=== PATIENT | female | born 1980 | race American Indian/Alaskan Native ===

== ENCOUNTER 2017-05-03 11:03 | Emergency (ER) | payer OTHER ==
[2017-05-03 12:18] VITALS: BP 145/81
--- NOTE | 2017-05-03 13:19 | Emergency Department Report ---
Minor Respiratory - HPI Chief Complaint: Upper Respiratory Infection Stated Complaint: FLU LIKE SYMPTOMS Time Seen by Provider: 05/03/17 12:44 Duration: 2 weeks Pain Location: Chest (from coughing) Severity: moderate Minor Respiratory: Yes Rhinorrhea, Yes Sore Throat, Yes Able to Tolerate Fluids , Yes Cough, Yes Sick Contacts, Yes Fever, No Ear Pain, No Hemoptysis, No Chest Pain, No Shortness of Breath Other History: This is a 36 y.o female with fever, productive cough, congestion , and runny nose for 2 weeks. She reports taking theraflu, sudafed, and mucinex with minimal relief. She was trying to work on symptoms herself at home but she just can't get reflief. Denies chest pain, SOB, and weakness. ED Review of Systems ROS: Stated complaint: FLU LIKE SYMPTOMS Other details as noted in HPI Constitutional: fever. denies: chills, diaphoresis, weakness ENT: throat pain, congestion. denies: ear pain, dental pain, hearing loss, epistaxis Respiratory: see HPI, cough. denies: orthopnea, shortness of breath, SOB with exertion, SOB at rest, stridor, wheezing Cardiovascular: as per HPI. denies: chest pain, palpitations, dyspnea on exertion, orthopnea, edema, syncope, paroxysmal nocturnal dyspnea Gastrointestinal: denies: abdominal pain, nausea, diarrhea Musculoskeletal: myalgia. denies: back pain, joint swelling, arthralgia Neurological: as per HPI, headache. denies: weakness, numbness, paresthesias, confusion, abnormal gait, vertigo ED Past Medical Hx - Past Medical History Previous Medical History?: Yes Hx Hypertension: No Hx CVA: No Hx Heart Attack/AMI: No Hx Congestive Heart Failure: No Hx Diabetes: No Hx Deep Vein Thrombosis: No Hx Pulmonary Embolism: No Hx GERD: No Hx Liver Disease: No Hx Renal Disease: No Hx of Cancer: No Hx Sickle Cell Disease: No Hx Arthritis: No Hx Headaches / Migraines: No Hx Seizures: No Hx Kidney Stones: No Hx Psychiatric Treatment: No Hx Asthma: No Hx COPD: No Hx Tuberculosis: No Hx Dementia: No Hx HIV: No - Surgical History Past Surgical History?: No Hx Coronary Stent: No Hx Open Heart Surgery: No Hx Pacemaker: No Hx Internal Defibrillator: No Hx Cholecystectomy: No Hx Appendectomy: No Hx Breast Surgery: No - Social History Smoking Status: Current Every Day Smoker Substance Use Type: Alcohol, Marijuana - Medications Home Medications: Home Medications Medication Instructions Recorded Confirmed Last Taken Type Azithromycin [Zithromax Z-ELOY] 250 mg PO DAILY 5 Days #6 tablet 05/03/17 Unknown Rx Benzonatate 200 mg PO TID PRN #30 capsule 05/03/17 Unknown Rx Fluticasone [Flonase] 1 spray NS QDAY #1 bottle 05/03/17 Unknown Rx Minor Respiratory Exam - Exam General: Vital signs noted. No distress. Alert and acting appropriately. HEENT: Yes Pharyngeal Erythema, Yes Moist Mucous Membranes, Yes Rhinorrhea, No Pharyngeal Exudates, No Conjuctival Injection, No Frontal Tenderness, No Maxillary Tenderness Ear: Neither TM Bulge, Neither TM Erythema, Neither EAC Pain, Neither EAC Discharge Neck: Yes Supple, No Adenopathy Lungs: Yes Good Air Exchange, Yes Ronchi, Yes Cough, No Wheezes, No Stridor, No Labored Respirations, No Retractions, No Use of Accessory Muscles, No Other Abnormal Lung Sounds Heart: Yes Regular, No Murmur Abdomen: Yes Normal Bowel Sounds, No Tenderness, No Peritoneal Signs Skin: No Rash, No Edema Neurologic: Alert and oriented, no deficits. Musculoskeletal: Unremarkable. ED Course Vital Signs 05/03/17 12:09 Temperature 99.8 F H Pulse Rate 100 H Respiratory 20 Rate Blood Pressure 145/81 Blood Pressure 145/81 [Right] O2 Sat by Pulse 97 Oximetry ED Medical Decision Making - Radiology Data Radiology results: image reviewed CXR Findings: Normal cardiomediastinal silhouette. Trachea is midline. No consolidation, pneumothorax or pleural effusion. Impression: No acute cardiopulmonary findings. - Medical Decision Making 36 y.o. female presents with flu-like symptoms x 2 weeks. 2 weeks of taking OTC cold and flu medication w/o improvement. Rapid influenza negative Impression: No acute cardiopulmonary findings. Non-productive cough worse at night. Start Zpak for pertussis value, benzonate for cough. Informed of cough possibly lasting 2-4 weeks. If not improved in 4 weeks f/u with [facility]. Encouraged to f/u with [facility] if symptoms are not improved in 1 week. Critical care attestation.: If time is entered above; I have spent that time in minutes in the direct care of this critically ill patient, excluding procedure time. ED Disposition Clinical Impression: Bronchitis URI (upper respiratory infection) Qualifiers: URI type: acute nasopharyngitis (common cold) Qualified Code(s): J00 - Acute nasopharyngitis [common cold] Disposition: TO HOME OR SELFCARE Is pt being admited?: No Does the pt Need Aspirin: No Condition: Stable Instructions: Chronic Bronchitis (ED) Additional Instructions: Wash hands frequently. The cough can last for 2-4 weeks. Use tylenol and ibuprofen should be taken with regular fluid intake. Follow up with primary care provider on referral. Seek medical attention if fever, headache, wheezing, or chest symptoms worsen. If drowsy or confused in the short term or if cough last longer than 4 weeks. Prescriptions: Azithromycin [Zithromax Z-ELOY] 250 mg PO DAILY 5 Days #6 tablet Benzonatate 200 mg PO TID PRN #30 capsule PRN Reason: Cough Fluticasone [Flonase] 1 spray NS QDAY #1 bottle Referrals: PRIMARY CARE, [Primary Care Provider] - 3-5 Days [facility] [Outside] - 3-5 Days [facility] [Outside] - 3-5 Days [facility] [Outside] - 3-5 Days Forms: Work/School Release Form(ED) Time of Disposition: 14:20 Print Language: SERBIAN
--- NOTE | 2017-05-03 13:37 | XRay Report ---
Chest 2 views: History: Cough. Findings: Normal cardiomediastinal silhouette. Trachea is midline. No consolidation, pneumothorax or pleural effusion. Impression: No acute cardiopulmonary findings.
== END 2017-05-03 14:33 | disposition home or self-care (01) ==
LOC: ED 11:03
DX: J40 Bronchitis, not specified as acute or chronic (principal); J00 Acute nasopharyngitis [common cold]; F17.200 Nicotine dependence, unspecified, uncomplicated; F12.10 Cannabis abuse, uncomplicated
CPT/HCPCS: 71046; 87400; 99283

== ENCOUNTER 2018-09-14 15:39 | Inpatient (IN) | payer OTHER, SELFPAY ==
--- NOTE | 2018-09-14 16:26 | Emergency Department Report ---
Blank Doc - Documentation Documentation: 38 y o female presents to Ed cc of sob and palpatations x 2 days after taking m agnesium citrate. labs [facility] eval
[2018-09-14 17:23] LABS: Basophils % (Auto) 0.2 % (0.0-1.8); Eosinophils # (Auto) 0.1 K/mm3 (0.0-0.4); Eosinophils % (Auto) 0.6 % (0.0-4.3); Hemoglobin 10.6 gm/dl (10.1-14.3); Lymphocytes % (Auto) 5.6 % (13.4-35.0); Mean Corpuscular HGB Conc 32 % (30-34); Mean Corpuscular Volume 86 fl (79-97); Monocytes # (Auto) 1.7 K/mm3 (0.0-0.8); Monocytes % (Auto) 9.2 % (0.0-7.3); Platelet Count 307 K/mm3 (140-440); Red Blood Count 3.84 M/mm3 (3.65-5.03); Red Cell Distribution Width 13.3 % (13.2-15.2)
[2018-09-14 18:03] LABS: BUN/Creatinine Ratio 10; Blood Urea Nitrogen 10 mg/dL (7-17); Calcium 8.9 mg/dL (8.4-10.2); Hemolysis Index 12
[2018-09-14] MEDS ORDERED: NACL 0.9% 1000 ML 1,000 ML IV ONE (18:56)
--- NOTE | 2018-09-14 19:05 | Emergency Department Report ---
ED General Adult HPI - General Chief complaint: Arrhythmia/Palpitations Stated complaint: SOB/CONSTIPATION Time Seen by Provider: 09/14/18 16:21 Source: patient Mode of arrival: Ambulatory Limitations: No Limitations - History of Present Illness Initial comments: This is a 38-year-old -[place] female who presents to the emergency room with palpitations and constipation for 5 days. She states she took two magnesium citrate and shortly after symptoms started last night. Patient reports clear liquid came out only. She also complains of shortness of breath, diffuse abdominal cramping, and urinary frequency. She denies dysuria, fever, and diarrhea. -: Last night Location: chest, abdomen Radiation: non-radiation Severity scale (0 -10): 0 Quality: other (cramping) Consistency: intermittent Improves with: none Worsens with: none Associated Symptoms: shortness of breath, other (palpitations). denies: confusion, chest pain, cough, diaphoresis, fever/chills, headaches, loss of appetite, malaise, nausea/vomiting, rash, seizure, syncope, weakness Treatments Prior to Arrival: none - Related Data Previous Rx's Medication Instructions Recorded Last Taken Type Azithromycin [Zithromax Z-ELOY] 250 mg PO DAILY 5 Days #6 tablet 05/03/17 Unknown Rx Benzonatate 200 mg PO TID PRN #30 capsule 05/03/17 Unknown Rx Fluticasone [Flonase] 1 spray NS QDAY #1 bottle 05/03/17 Unknown Rx Allergies Allergy/AdvReac Type Severity Reaction Status Date / Time No Known Allergies Allergy Verified 09/14/18 16:23 ED Review of Systems ROS: Stated complaint: SOB/CONSTIPATION Other details as noted in HPI Constitutional: denies: chills, fever Respiratory: denies: cough, shortness of breath, wheezing Cardiovascular: palpitations. denies: chest pain, edema, syncope Gastrointestinal: abdominal pain, constipation. denies: nausea, diarrhea Genitourinary: denies: urgency, dysuria, discharge Skin: denies: rash, lesions Neurological: denies: headache, weakness, paresthesias Psychiatric: denies: anxiety, depression ED Past Medical Hx - Past Medical History Previous Medical History?: No Hx Hypertension: No Hx CVA: No Hx Heart Attack/AMI: No Hx Congestive Heart Failure: No Hx Diabetes: No Hx Deep Vein Thrombosis: No Hx Pulmonary Embolism: No Hx GERD: No Hx Liver Disease: No Hx Renal Disease: No Hx Sickle Cell Disease: No Hx Arthritis: No Hx Headaches / Migraines: No Hx Seizures: No Hx Kidney Stones: No Hx Psychiatric Treatment: No Hx Asthma: No Hx COPD: No Hx Tuberculosis: No Hx Dementia: No Hx HIV: No - Surgical History Past Surgical History?: No Hx Coronary Stent: No Hx Open Heart Surgery: No Hx Pacemaker: No Hx Internal Defibrillator: No Hx Cholecystectomy: No Hx Appendectomy: No Hx Breast Surgery: No - Social History Smoking Status: Current Some Day Smoker Substance Use Type: Alcohol - Medications Home Medications: Home Medications Medication Instructions Recorded Confirmed Last Taken Type Azithromycin [Zithromax Z-ELOY] 250 mg PO DAILY 5 Days #6 tablet 05/03/17 Unknown Rx Benzonatate 200 mg PO TID PRN #30 capsule 05/03/17 Unknown Rx Fluticasone [Flonase] 1 spray NS QDAY #1 bottle 05/03/17 Unknown Rx ED Physical Exam - General Limitations: No Limitations General appearance: alert, in no apparent distress - Respiratory Respiratory exam: Present: normal lung sounds bilaterally. Absent: respiratory distress - Cardiovascular Cardiovascular Exam: Present: regular rate, normal rhythm. Absent: systolic murmur, diastolic murmur, rubs, gallop - GI/Abdominal GI/Abdominal exam: Present: soft, tenderness (left upper quadrant and right lower quadrant), normal bowel sounds. Absent: distended, guarding, rebound, rigid, organomegaly, mass, bruit, pulsatile mass - Back Exam Back exam: Absent: CVA tenderness (R), CVA tenderness (L) - Neurological Exam Neurological exam: Present: alert, oriented X3 - Psychiatric Psychiatric exam: Present: normal affect, normal mood - Skin Skin exam: Present: warm, dry, intact, normal color. Absent: rash ED Course Vital Signs 09/14/18 09/15/18 16:21 04:25 Temperature 98.8 F Pulse Rate 116 H Respiratory 20 18 Rate Blood Pressure 133/73 [Right] O2 Sat by Pulse 100 98 Oximetry ED Medical Decision Making - Lab Data Result diagrams: 09/14/18 16:57 09/14/18 16:57 - EKG Data -: No EKG Interpreted by Me (EKG interpreted by attending) EKG shows normal: sinus rhythm Rate: normal - Radiology Data Radiology results: report reviewed PROCEDURE: CT ABDOMEN PELVIS W CON TECHNIQUE: Computerized axial tomography of the abdomen and pelvis was performed after the IV injection of iodinated nonionic contrast. CT DOSE LENGTH PRODUCT: mGycm HISTORY: LUQ RLQ tenderness COMPARISONS: None . FINDINGS: Liver, spleen, pancreas and adrenal glands are within normal limits. Bilateral kidneys demonstrate uniform enhancement without hydronephrosis. Aorta is of normal caliber. There is no free fluid or free air. Gallbladder is unremarkable. There are multiple moderately distended loops of small bowel with air fluid Levels. A Definite site of transition is not identified. Appendix is normal. The multiloculated fluid collection measuring 6.4 x 5.0 cm is noted to the left of the uterus displacing the uterus to the right. An IUD is identified in the uterus. Vertebral height is normal. IMPRESSION: A multiloculated fluid collection in the pelvis on the left may represent etiologies such as tubo-ovarian abscess and left ovarian cyst. Ultrasound evaluation is recommended. Air-fluid levels in moderately distended small bowel loops most likely represent ileus. EXAM: US TRANSVAGINAL, US PELVIC COMPLETE HISTORY: r/o ovarian cyst or abscess TECHNIQUE: Transabdominal and transvaginal sonogram of the pelvis was performed. COMPARISON: CT pelvis from 09/14/2018 FINDINGS: Uterus is unremarkable and measures 9.2 x 4.3 x 7.0 cm. The endometrial stripe thickness is 1.1 cm within normal limits. The IUD is malpositioned and located at the cervix. 1.9 cm simple cyst in the right ovary is within physiologic range. Doppler flow demonstrated to the right ovary. The ovary measures 3.4 x 2.0 x 3.4 cm. There is a complex cystic lesion in the left adnexa with internal echoes and peripheral vascularity. The etiology is indeterminate. Possible tubo-ovarian abscess, nonspecific complex cysts, other. Clinical correlation and follow-up recommended. A normal left ovary is not visualized. No free fluid. IMPRESSION: Complex left adnexal cystic lesion is of indeterminate etiology. Possible tubo- ovarian abscess, nonspecific complex cysts, other. Clinical correlation and follow-up recommended. The IUD is malpositioned in the cervix. - Medical Decision Making Patient was examined by me. Patient is in no acute distress. Tachycardic on arrival. Obtained a CBC, CMP, hCG, and CT of abdomen and pelvis. Leukocytosis. IV initiated. Given normal saline 1 L, Toradol, and Benadryl while in the ER. There was suspension of PID and patient given rocephin 1 gram IV prior to blood cultures. CT results of A multiloculated fluid collection in the pelvis on the left may represent etiologies such as tubo-ovarian abscess and left ovarian cyst. Ultrasound evaluation is recommended. Air-fluid levels in mode rately distended small bowel loops most likely represent ileus. Ordered Ultrasound of pelvic and transvaginal. Complex left adnexal cystic lesion is of indeterminate etiology. Possible tubo-ovarian abscess, nonspecific complex cysts, other. Clinical correlation and follow-up recommended. The IUD is malpositioned in the cervix. Consulted attending Dr. Barnes. Patient tachycardic with leukocytosis which meets suspected sepsis protocol. Consulted OPTOMET[employer] ASSISTANT Dr. Posey. Consulted hospitalist Dr. Peralta. Consulted Dr. Posey with [facility] who would like to have patient admitted through hospitalist and [facility] consulted for management of possible tubo-ovarian abscess. Spoke with Dr. Peralta who agreed to admit the patient for sepsis protocol. Ordered clindamycin 300 mg IV, gentamycin 120 mg IV and normal saline 1 L. Critical care attestation.: If time is entered above; I have spent that time in minutes in the direct care of this critically ill patient, excluding procedure time. ED Disposition Clinical Impression: Shortness of breath on exertion, Tubo-ovarian abscess Abdominal pain Qualifiers: Abdominal location: generalized Qualified Code(s): R10.84 - Generalized abdominal pain Sepsis Qualifiers: Sepsis type: sepsis due to unspecified organism Qualified Code(s): A41.9 - Sepsis, unspecified organism Disposition: OP ADMIT IP TO THIS HOSP Is pt being admited?: Yes Condition: Stable
[2018-09-14] MEDS ORDERED: BENADRYL IV ONE (22:46)
[2018-09-14] MEDS ORDERED: BENADRYL ONE (22:49)
--- NOTE | 2018-09-14 23:33 | Cat Scan Report ---
PROCEDURE: CT ABDOMEN PELVIS W CON TECHNIQUE: Computerized axial tomography of the abdomen and pelvis was performed after the IV inject ion of iodinated nonionic contrast. CT DOSE LENGTH PRODUCT: mGycm HISTORY: LUQ RLQ tenderness COMPARISONS: None . FINDINGS: Liver, spleen, pancreas and adrenal glands are within normal limits. Bilateral kidneys demonstrate un iform enhancement without hydronephrosis. Aorta is of normal caliber. There is no free fluid or free air. Gallbladder is unremarkable. There are multiple moderately distended loops of small bowel with a ir fluid Levels. A Definite site of transition is not identified. Appendix is normal. The multilocula fabrice fluid collection measuring 6.4 x 5.0 cm is noted to the left of the uterus displacing the uterus to the right. An IUD is identified in the uterus. Vertebral height is normal. IMPRESSION: A multiloculated fluid collection in the pelvis on the left may represent etiologies such as tubo-ovarian abscess and left ovarian cyst. Ultrasound evaluation is recommended. Air-fluid levels in moderately distended small bowel loops most likely represent ileus. This document is electronically signed by Robert Casper MD., Sep 14 2018 11:31:07 PM ET
[2018-09-14] MEDS ORDERED: ROCEPHIN/NS 1 GM/50 ML 1 GM/50 ML BAG IV ONE (23:37)
[2018-09-14] MEDS ORDERED: TORADOL IV ONE (23:40)
--- NOTE | 2018-09-15 01:29 | Ultrasound Report ---
EXAM: US TRANSVAGINAL, US PELVIC COMPLETE HISTORY: r/o ovarian cyst or abscess TECHNIQUE: Transabdominal and transvaginal sonogram of the pelvis was performed. COMPARISON: CT pelvis from 09/14/2018 FINDINGS: Uterus is unremarkable and measures 9.2 x 4.3 x 7.0 cm. The endometrial stripe thickness is 1.1 cm within normal limits. The IUD is malpositioned and located at the cervix. 1.9 cm simple cyst in the right ovary is within physiologic range. Doppler flow demonstrated to the r ight ovary. The ovary measures 3.4 x 2.0 x 3.4 cm. There is a complex cystic lesion in the left adnexa with internal echoes and peripheral vascularity. The etiology is indeterminate. Possible tubo-ovarian abscess, nonspecific complex cysts, other. Clini bola correlation and follow-up recommended. A normal left ovary is not visualized. No free fluid. IMPRESSION: Complex left adnexal cystic lesion is of indeterminate etiology. Possible tubo-ovarian abscess, nonsp ecific complex cysts, other. Clinical correlation and follow-up recommended. The IUD is malpositioned in the cervix. This document is electronically signed by Corona Delacruz MD., Sep 15 2018 01:27:40 AM ET
[2018-09-15] MEDS ORDERED: NACL 0.9% 1000 ML IV ONE (01:40)
[2018-09-15] MEDS ORDERED: GENTAMICIN/NS 120MG/100ML 120 MG/100 ML BAG IV ONE (01:49)
[2018-09-15] MEDS ORDERED: CLEOCIN 300 MG/50 mL 300 MG/50 ML BAG IV ONE (01:49)
[2018-09-15] MEDS ORDERED: SODIUM CHLORIDE FLUSH SYRINGE 10 ML IV PRN (02:49)
[2018-09-15] MEDS ORDERED: TYLENOL PO PRN (02:49)
--- NOTE | 2018-09-15 03:03 | History and Physical Report ---
History of Present Illness Date of examination: 09/15/18 Chief complaint: Shortness of breath History of present illness: Patient is a 38-year-old -[place] female with no known past medical history who presented to the ED on account of a day history of shortness of breath. Patient stated that she's been having constipation for the past 5 days which was not relieved by laxatives. Subsequently, she started experiencing palpitations and today she started having shortness of breath which prompted her to come to the ED for further evaluation. She has associated chills without fever, left lower quadrant abdominal pain radiating to the back, headaches, lightheadedness and generalized weakness. She denies chest pain, cough, sore throat, runny nose or congestion, leg swelling, orthopnea or PND. No nausea, vomiting, syncope or loss of consciousness. Past History Past Medical History: No medical history, other (Gynecology hx: Irregular me nstrual period for 3 months) Past Surgical History: Other (IUD placement for more than 10 years) Social history: smoking (patient has more than 30 years history of cigarette smoking. She currently smokes few sticks per day. She admits to occasional alcohol and marijuana use. She denies other illicit drug use) Family history: no significant family history (reviewed and noncontributory to current complaints) Medications and Allergies Allergies Allergy/AdvReac Type Severity Reaction Status Date / Time No Known Allergies Allergy Verified 09/14/18 16:23 Home Medications Medication Instructions Recorded Confirmed Last Taken Type Azithromycin [Zithromax Z-ELOY] 250 mg PO DAILY 5 Days #6 tablet 05/03/17 Unknown Rx Benzonatate 200 mg PO TID PRN #30 capsule 05/03/17 Unknown Rx Fluticasone [Flonase] 1 spray NS QDAY #1 bottle 05/03/17 Unknown Rx Active Meds: Active Medications Acetaminophen (Tylenol) 650 mg PO Q4H PRN PRN Reason: Pain MILD(1-3)/Fever >100.5/RIBEIRO Famotidine (Pepcid) 20 mg IV DAILY ARUNA Hydromorphone HCl (Dilaudid) 0.5 mg IV Q3H PRN PRN Reason: Pain , Severe (7-10) Potassium Chloride/Sodium Chloride (Ns/Kcl 20meq) 20 meq in 1,000 mls @ 100 mls/hr IV DIRECT ARUNA Ampicillin Sodium/Sulbactam Sodium (Unasyn/Ns 3 Gm/100 Ml) 3 gm in 100 mls @ 200 mls/hr IV Q6HR ARUNA; Protocol Doxycycline Hyclate 100 mg/ (Sodium Chloride) 250 mls @ 250 mls/hr IV Q12HR ARUNA; Protocol Ondansetron HCl (Zofran) 4 mg IV Q6H PRN PRN Reason: Nausea And Vomiting Oxycodone/Acetaminophen (Percocet 5/325) 1 tab PO Q4H PRN PRN Reason: Pain, Moderate (4-6) Sodium Chloride (Sodium Chloride Flush Syringe 10 Ml) 10 ml IV BID ARUNA Sodium Chloride (Sodium Chloride Flush Syringe 10 Ml) 10 ml IV PRN PRN PRN Reason: LINE FLUSH Zolpidem Tartrate (Ambien) 5 mg PO QHS PRN PRN Reason: Insomnia Review of Systems All systems: negative (except as documented in the HPI, 14 point systems reviewed were negative) Exam - Constitutional Vitals: Temp Pulse Resp BP Pulse Ox 98.8 F 116 H 20 133/73 100 09/14/18 16:21 09/14/18 16:21 09/14/18 16:21 09/14/18 16:21 09/14/18 16:21 General appearance: Present: no acute distress - EENT Eyes: Present: PERRL, EOM intact ENT: hearing intact, clear oral mucosa - Neck Neck: Present: supple, normal ROM - Respiratory Respiratory effort: normal Respiratory: bilateral: CTA - Cardiovascular Rhythm: regular (with tachycardia) Heart Sounds: Present: S1 & S2 - Extremities Extremities: pulses symmetrical, No edema - Abdominal General gastrointestinal: Present: soft, tender (LLQ), non-distended, normal bowel sounds - Rectal Rectal Exam: deferred - Integumentary Integumentary: Present: clear, warm, dry - Musculoskeletal Musculoskeletal: strength equal bilaterally - Psychiatric Psychiatric: appropriate mood/affect, intact judgment & insight - Neurologic Neurologic: CNII-XII intact Results - Labs CBC & Chem 7: 09/14/18 16:57 09/14/18 16:57 Labs: Laboratory Last Values WBC 18.4 K/mm3 (4.5-11.0) H 09/14/18 16:57 RBC 3.84 M/mm3 (3.65-5.03) 09/14/18 16:57 Hgb 10.6 gm/dl (10.1-14.3) 09/14/18 16:57 Hct 33.0 % (30.3-42.9) 09/14/18 16:57 MCV 86 fl (79-97) 09/14/18 16:57 MCH 28 pg (28-32) 09/14/18 16:57 MCHC 32 % (30-34) 09/14/18 16:57 RDW 13.3 % (13.2-15.2) 09/14/18 16:57 Plt Count 307 K/mm3 (140-440) 09/14/18 16:57 Lymph % (Auto) 5.6 % (13.4-35.0) L 09/14/18 16:57 [place] % (Auto) 9.2 % (0.0-7.3) H 09/14/18 16:57 Eos % (Auto) 0.6 % (0.0-4.3) 09/14/18 16:57 Baso % (Auto) 0.2 % (0.0-1.8) 09/14/18 16:57 Lymph # 1.0 K/mm3 (1.2-5.4) L 09/14/18 16:57 [place] # 1.7 K/mm3 (0.0-0.8) H 09/14/18 16:57 Eos # 0.1 K/mm3 (0.0-0.4) 09/14/18 16:57 Baso # 0.0 K/mm3 (0.0-0.1) 09/14/18 16:57 Seg Neutrophils % 84.4 % (40.0-70.0) H 09/14/18 16:57 Seg Neutrophils # 15.5 K/mm3 (1.8-7.7) H 09/14/18 16:57 Sodium 136 mmol/L (137-145) L 09/14/18 16:57 Potassium 3.6 mmol/L (3.6-5.0) 09/14/18 16:57 Chloride 97.1 mmol/L (98-107) L 09/14/18 16:57 Carbon Dioxide 26 mmol/L (22-30) 09/14/18 16:57 17 mmol/L 05/21/19 16:57 BUN 10 mg/dL (7-17) 09/14/18 16:57 1.0 mg/dL (0.7-1.2) 09/14/18 16:57 Estimated GFR > 60 ml/min 09/14/18 16:57 10 % 09/14/18 16:57 Glucose 100 mg/dL (65-100) 09/14/18 16:57 Calcium 8.9 mg/dL (8.4-10.2) 09/14/18 16:57 Magnesium 2.40 mg/dL (1.7-2.3) H 09/14/18 16:57 < 0.010 ng/mL (0.00-0.029) 09/14/18 16:57 HCG, Qual Negative (Negative) 09/14/18 21:31 - Imaging and Cardiology CT scan - abdomen: image reviewed CT scan - pelvis: image reviewed Assessment and Plan Assessment and plan: Sepsis probably secondary to LT tubo-ovarian abscess -CT abdomen/pelvis and transvaginal ultrasound findings suggestive of LT tubo- ovarian abscess -On IV antibiotics with Unasyn and doxycycline -Urinalysis and blood cultures pending -Gynecology consulted in the ED Ileus per imaging -On bowel rest, will monitor clinically Malpositioned IUD -Gynecology to follow up DVT prophylaxis with SCD Disposition: For discharge when medically stable and clearance by gynecology Time spent: 38 Minutes
[2018-09-15] MEDS: PERCOCET 5/325 PO PRN ×3 (03:20→21:45)
[2018-09-15 04:03] LABS: INR 1.05 (0.87-1.13)
[2018-09-15] MEDS: NS/KCL 20MEQ 20 MEQ/1,000 ML BAG IV SCH (04:11)
--- NOTE | 2018-09-15 04:44 | Consultation ---
History of Present Illness Consult date: 09/15/18 Reason for consult: pelvic pain History of present illness: This is a 38yo female with constipation, palpitations and LLQ pain. Her ED evaluation revealed 6 cm left adnexal mass possible TOA, WBC 18K and a hrt 116. LLQ pain started ~7days ago. She denies nausea/vomiting and fever, admits to intermittent chills and vaginal discharge. She had an IUD place ~17years ago. Past History Past Medical History: no pertinent history Past Surgical History: no surgical history [employer]LE[employer] History: trichomonas Social history: smoking, other (social EtOH use). denies: alcohol abuse, prescription drug abuse, IV drug use - Obstetrical History : 1 Spontaneous Abortions: 1 (16week SAB) Medications and Allergies Allergies Allergy/AdvReac Type Severity Reaction Status Date / Time No Known Allergies Allergy Verified 09/14/18 16:23 Home Medications Medication Instructions Recorded Confirmed Last Taken Type Azithromycin [Zithromax Z-ELOY] 250 mg PO DAILY 5 Days #6 tablet 05/03/17 Unknown Rx Benzonatate 200 mg PO TID PRN #30 capsule 05/03/17 Unknown Rx Fluticasone [Flonase] 1 spray NS QDAY #1 bottle 05/03/17 Unknown Rx Active Meds: Active Medications Acetaminophen (Tylenol) 650 mg PO Q4H PRN PRN Reason: Pain MILD(1-3)/Fever >100.5/RIBEIRO Famotidine (Pepcid) 20 mg IV DAILY ARUNA Hydromorphone HCl (Dilaudid) 0.5 mg IV Q3H PRN PRN Reason: Pain , Severe (7-10) Potassium Chloride/Sodium Chloride (Ns/Kcl 20meq) 20 meq in 1,000 mls @ 100 mls/hr IV DIRECT ARUNA Last Admin: 09/15/18 04:11 Dose: 100 mls/hr Documented by: Ampicillin Sodium/Sulbactam Sodium (Unasyn/Ns 3 Gm/100 Ml) 3 gm in 100 mls @ 200 mls/hr IV Q6HR ARUNA; Protocol Doxycycline Hyclate 100 mg/ (Sodium Chloride) 250 mls @ 250 mls/hr IV Q12HR ARUNA; Protocol Ondansetron HCl (Zofran) 4 mg IV Q6H PRN PRN Reason: Nausea And Vomiting Oxycodone/Acetaminophen (Percocet 5/325) 1 tab PO Q4H PRN PRN Reason: Pain, Moderate (4-6) Last Admin: 09/15/18 03:20 Dose: 1 tab Documented by: Sodium Chloride (Sodium Chloride Flush Syringe 10 Ml) 10 ml IV BID ARUNA Sodium Chloride (Sodium Chloride Flush Syringe 10 Ml) 10 ml IV PRN PRN PRN Reason: LINE FLUSH Zolpidem Tartrate (Ambien) 5 mg PO QHS PRN PRN Reason: Insomnia Review of Systems All systems: negative Genitourinary: vaginal discharge, pelvic pain - Vital Signs Vital signs: Vital Signs Temp Pulse Resp BP Pulse Ox 98.8 F 116 H 20 133/73 100 09/14/18 16:21 09/14/18 16:21 09/14/18 16:21 09/14/18 16:21 09/14/18 16:21 Temp Pulse Resp BP Pulse Ox 98.8 F 116 H 18 133/73 98 09/14/18 16:21 09/14/18 16:21 09/15/18 04:25 09/14/18 16:21 09/15/18 04:25 - Physical Exam Breasts: Positive: deferred Lungs: Positive: Normal air movement Abdomen: Positive: soft. Negative: guarding Genitourinary (Female): Positive: normal external genitalia, normal perenium Vulva: both: normal Vagina: Positive: discharge, other (IUD noted on SSE. ) Cervix: Positive: other (+cervical motion tenderness) Uterus: Positive: other (unable to palpate d/t guarding) Adnexa: left: tenderness Anus/Rectum: Positive: normal perianal skin Extremities: Positive: normal Results Result Diagrams: 09/14/18 16:57 09/14/18 16:57 Abnormal lab results 09/14/18 09/14/18 09/15/18 Range/Units 16:57 16:57 01:52 WBC 18.4 H (4.5-11.0) K/mm3 Lymph % (Auto) 5.6 L (13.4-35.0) % [place] % (Auto) 9.2 H (0.0-7.3) % Lymph # 1.0 L (1.2-5.4) K/mm3 [place] # 1.7 H (0.0-0.8) K/mm3 Seg Neutrophils % 84.4 H (40.0-70.0) % Seg Neutrophils # 15.5 H (1.8-7.7) K/mm3 Sodium 136 L (137-145) mmol/L Chloride 97.1 L (98-107) mmol/L Lactic Acid 0.60 L (0.7-2.0) mmol/L Magnesium 2.40 H (1.7-2.3) mg/dL All other labs normal. Ultrasound: report reviewed, image reviewed CT scan - pelvis: report reviewed Assessment and Plan See orders - Patient Problems (1) PID (acute pelvic inflammatory disease) Current Visit: Yes Status: Acute (2) Constipation Current Visit: Yes Status: Acute (3) Palpitations Current Visit: Yes Status: Acute (4) Sepsis Current Visit: Yes Status: Acute Qualifiers: Sepsis type: sepsis due to unspecified organism Qualified Code(s): A41.9 - Sepsis, unspecified organism (5) Tubo-ovarian abscess Current Visit: Yes Status: Acute
[2018-09-15] MEDS ORDERED: UNASYN/NS 3 GM/100 ML 3 GM/100 ML BAG IV SCH (06:00)
[2018-09-15 06:21] LABS: Bacteria,Urine 1+ /HPF (Negative); Bilirubin,Urine NEG (Negative); Blood,Urine LG (Negative); Color,Urine Yellow (Yellow); Mucus,Urine FEW /HPF; Urobilinogen,Urine < 2.0 mg/dL (<2.0)
--- NOTE | 2018-09-15 07:19 | Event Note ---
Date: 09/15/18 s/w Dr. Ohara who recommends Doxycycline, Rocephin and Flagyl, orders changed S/w Dr. Ferreira ( [facility] [employer] [facility]) state he will contact Dr. Fitch or Dr. Preciado(interventional radiology) for ? aspiration/drainage TOA
[2018-09-15] MEDS ORDERED: ROCEPHIN 1,000 MG in NACL 0.9% 50 ML IV ONE (07:37)
[2018-09-15] MEDS ORDERED: XYLOCAINE 1% MPF 5 mL INFILTRATI NR (08:30)
[2018-09-15] MEDS: FLAGYL 500 MG/100 ML 500 MG/100 ML BAG IV SCH ×3 (09:20→21:41)
[2018-09-15] MEDS: PEPCID IV SCH (09:21)
[2018-09-15] MEDS: SODIUM CHLORIDE FLUSH SYRINGE 10 ML IV SCH ×2 (09:23→21:42)
[2018-09-15] MEDS: ZOFRAN IV PRN (09:28)
[2018-09-15] MEDS: DILAUDID IV PRN (09:28)
--- NOTE | 2018-09-15 09:58 | Event Note ---
Date: 09/15/18 Patient with left tubo-ovarian abscess. For CT guided drainage tomorrow.
[2018-09-15] MEDS ORDERED: ROCEPHIN/NS 1 GM/50 ML 1 GM/50 ML BAG IV ONE (10:00)
--- NOTE | 2018-09-15 10:01 | Consultation ---
History of Present Illness - Reason for Consult Consult date: 09/15/18 left TOA - History of Present Illness Patient with a history of left flank pain was noted to have a left tubo-ovarian abscess on CT scan. Past History Past Medical History: No medical history, other (Gynecology hx: Irregular menstrual period for 3 months) Past Surgical History: Other (IUD placement for more than 10 years) Social history: smoking, other (social EtOH use). denies: alcohol abuse, prescription drug abuse, IV drug use Family history: no significant family history (reviewed and noncontributory to current complaints) Medications and Allergies Allergies Allergy/AdvReac Type Severity Reaction Status Date / Time No Known Allergies Allergy Verified 09/14/18 16:23 Home Medications Medication Instructions Recorded Confirmed Last Taken Type Azithromycin [Zithromax Z-ELOY] 250 mg PO DAILY 5 Days #6 tablet 05/03/17 Unknown Rx Benzonatate 200 mg PO TID PRN #30 capsule 05/03/17 Unknown Rx Fluticasone [Flonase] 1 spray NS QDAY #1 bottle 05/03/17 Unknown Rx Active Meds: Active Medications Acetaminophen (Tylenol) 650 mg PO Q6H PRN PRN Reason: Pain MILD(1-3)/Fever >100.5/RIBEIRO Famotidine (Pepcid) 20 mg IV DAILY ARUNA Last Admin: 09/15/18 09:21 Dose: 20 mg Documented by: Hydromorphone HCl (Dilaudid) 0.5 mg IV Q3H PRN PRN Reason: Pain , Severe (7-10) Last Admin: 09/15/18 09:28 Dose: 0.5 mg Documented by: Potassium Chloride/Sodium Chloride (Ns/Kcl 20meq) 20 meq in 1,000 mls @ 100 mls/hr IV DIRECT ARUNA Last Admin: 09/15/18 04:11 Dose: 100 mls/hr Documented by: Doxycycline Hyclate 100 mg/ (Sodium Chloride) 250 mls @ 250 mls/hr IV Q12HR ARUNA; Protocol Metronidazole (Flagyl 500 Mg/100 Ml) 500 mg in 100 mls @ 100 mls/hr IV Q8HR ARUNA; Protocol Last Admin: 09/15/18 09:20 Dose: 100 mls/hr Documented by: Ceftriaxone Sodium (Rocephin/Ns 2 Gm/100 Ml) 2 gm in 100 mls @ 200 mls/hr IV Q24HR ARUNA; Protocol Ceftriaxone Sodium (Rocephin/Ns 1 Gm/50 Ml) 1 gm in 50 mls @ 100 mls/hr IV ONCE ONE Stop: 09/15/18 10:29 Last Admin: 09/15/18 09:21 Dose: 100 mls/hr Documented by: Lidocaine (Xylocaine 1% Mpf 5 Ml) 2 ml INFILTRATI ONCE NR Stop: 09/16/18 08:29 Ondansetron HCl (Zofran) 4 mg IV Q6H PRN PRN Reason: Nausea And Vomiting Last Admin: 09/15/18 09:28 Dose: 4 mg Documented by: Oxycodone/Acetaminophen (Percocet 5/325) 1 tab PO Q4H PRN PRN Reason: Pain, Moderate (4-6) Last Admin: 09/15/18 03:20 Dose: 1 tab Documented by: Sodium Chloride (Sodium Chloride Flush Syringe 10 Ml) 10 ml IV BID ARUNA Last Admin: 09/15/18 09:23 Dose: 10 ml Documented by: Sodium Chloride (Sodium Chloride Flush Syringe 10 Ml) 10 ml IV PRN PRN PRN Reason: LINE FLUSH Zolpidem Tartrate (Ambien) 5 mg PO QHS PRN PRN Reason: Insomnia Review of Systems All systems: negative Exam - Constitutional Vitals: Temp Pulse Resp BP Pulse Ox 98.6 F 98 H 18 120/74 96 09/15/18 04:48 09/15/18 04:48 09/15/18 04:48 09/15/18 04:48 09/15/18 04:48 General appearance: Present: no acute distress - EENT Eyes: Present: EOM intact ENT: hearing intact - Neck Neck: Present: supple, normal ROM - Respiratory Respiratory effort: normal - Extremities Extremities: no ischemia - Rectal Rectal Exam: deferred - Psychiatric Psychiatric: appropriate mood/affect, cooperative Results - Labs CBC & Chem 7: 09/14/18 16:57 09/14/18 16:57 Labs: Abnormal lab results 09/14/18 09/14/18 09/15/18 Range/Units 16:57 16:57 01:52 WBC 18.4 H (4.5-11.0) K/mm3 Lymph % (Auto) 5.6 L (13.4-35.0) % [place] % (Auto) 9.2 H (0.0-7.3) % Lymph # 1.0 L (1.2-5.4) K/mm3 [place] # 1.7 H (0.0-0.8) K/mm3 Seg Neutrophils % 84.4 H (40.0-70.0) % Seg Neutrophils # 15.5 H (1.8-7.7) K/mm3 Sodium 136 L (137-145) mmol/L Chloride 97.1 L (98-107) mmol/L Lactic Acid 0.60 L (0.7-2.0) mmol/L Magnesium 2.40 H (1.7-2.3) mg/dL Urine WBC (Auto) (0.0-6.0) /HPF U Epithel Cells (Auto) (0-13.0) /HPF 09/15/18 Range/Units 05:53 WBC (4.5-11.0) K/mm3 Lymph % (Auto) (13.4-35.0) % [place] % (Auto) (0.0-7.3) % Lymph # (1.2-5.4) K/mm3 [place] # (0.0-0.8) K/mm3 Seg Neutrophils % (40.0-70.0) % Seg Neutrophils # (1.8-7.7) K/mm3 Sodium (137-145) mmol/L Chloride (98-107) mmol/L Lactic Acid (0.7-2.0) mmol/L Magnesium (1.7-2.3) mg/dL Urine WBC (Auto) 89.0 H (0.0-6.0) /HPF U Epithel Cells (Auto) 14.0 H (0-13.0) /HPF - Imaging and Cardiology CT scan - abdomen: report reviewed, image reviewed CT scan - pelvis: report reviewed, image reviewed Assessment and Plan Patient was scheduled for drainage of tubo-ovarian abscess today however, the CT scanner is broken today. The patient will be scheduled for tomorrow.
[2018-09-15] MEDS: DOXYCYCLINE HYCLATE 100 MG in NACL 0.9% 250ML 250 ML IV SCH ×2 (10:55→21:42)
--- NOTE | 2018-09-15 14:06 | Consultation ---
History of Present Illness - Reason for Consult Consult date: 09/15/18 Pelvic inflammatory disease Requesting physician: CONCEPCION FARRELL - History of Present Illness This patient is a 38-year old female with no know past medical history that presented to the ED on 09/15/18 with a day history of SOB and constipation for the past 5 days, not relieved by laxatives. She reports associated chills without fever, left lower quadrant abdominal pain radiating to the back, headaches, lightheadedness and generalized weakness. On admission WBC 18.4, Creatinine1.0, Lactic Acid 0.60, Temperature 98.8, HR 116, BP 120/74. U/A with pyuria, WBC 89 with large LE. Blood cultures are in progress. Abdomen/Pelvis CT showed a multiloculated fluid collection in the pelvis on the left may represent etiologies such as tubo-ovarian abscess and left ovarian cyst. Pelvis ultrasound showed Complex left adnexal cystic lesion of indeterminate etiology. Possible tubo-ovarian abscess, nonspecific complex cysts. Review of Systems: General: no fever, nightsweats, + chills no unintentional weight change, or change in appetite Cutaneous: no rash, pruritus Head: + headache due to left side lower abdominal pain Eyes: no changes in vision, eye pain, double vision Ears: no ear pain, ear discharge, ringing or hearing loss Nose: no nose bleeding, stuffiness Mouth & throat: no bleeding gums, no horseness, no dental problems, or swollen glands Neck: no pain, node enlargement/lumps, tyroid enlargement or tenderness Respiratory: no cough, wheezing, sputum, hemoptysis, pleuritic chest pain Cardiovascular: no chest pain, leg edema, cyanosis, LYNCH, orthopnea Musculoskeletal: no decreased joint motion, bone or joint pain, joint swelling, muscle aches Gastrointestinal: no nausea, vomiting, hematemesis, diarrhea, constipation, melena, bright red blood in stools, fecal incontinence, jaundice Genitourinary/Reproductive: no frequent urination, no dysuria, hematuria, incontinence. + left lower abdominal pain radiating to the back. Neurogical: + headache. no seizures no weakness, no paresthesias, no loss of speech or vision; no memory loss, no vertigo, no tremors, no numbness Psychiatric: + anxiety due to current pain state - 8/10 on numeric pain scale. Past History Past Medical History: No medical history, other (Gynecology hx: Irregular menstrual period for 3 months) Past Surgical History: Other (IUD placement for more than 10 years) Social history: smoking, other (social EtOH use). denies: alcohol abuse, presc ription drug abuse, IV drug use Family history: no significant family history (reviewed and noncontributory to current complaints) Medications and Allergies Allergies Allergy/AdvReac Type Severity Reaction Status Date / Time No Known Allergies Allergy Verified 09/14/18 16:23 Home Medications Medication Instructions Recorded Confirmed Last Taken Type Azithromycin [Zithromax Z-ELOY] 250 mg PO DAILY 5 Days #6 tablet 05/03/17 Unknown Rx Benzonatate 200 mg PO TID PRN #30 capsule 05/03/17 Unknown Rx Fluticasone [Flonase] 1 spray NS QDAY #1 bottle 05/03/17 Unknown Rx Active Meds: Active Medications Acetaminophen (Tylenol) 650 mg PO Q6H PRN PRN Reason: Pain MILD(1-3)/Fever >100.5/RIBEIRO Famotidine (Pepcid) 20 mg IV DAILY ARUNA Last Admin: 09/15/18 09:21 Dose: 20 mg Documented by: Hydromorphone HCl (Dilaudid) 0.5 mg IV Q3H PRN PRN Reason: Pain , Severe (7-10) Last Admin: 09/15/18 09:28 Dose: 0.5 mg Documented by: Potassium Chloride/Sodium Chloride (Ns/Kcl 20meq) 20 meq in 1,000 mls @ 100 mls/hr IV DIRECT ARUNA Last Admin: 09/15/18 04:11 Dose: 100 mls/hr Documented by: Doxycycline Hyclate 100 mg/ (Sodium Chloride) 250 mls @ 250 mls/hr IV Q12HR ARUNA; Protocol Last Admin: 09/15/18 10:55 Dose: 250 mls/hr Documented by: Metronidazole (Flagyl 500 Mg/100 Ml) 500 mg in 100 mls @ 100 mls/hr IV Q8HR ARUNA; Protocol Last Admin: 09/15/18 09:20 Dose: 100 mls/hr Documented by: Ceftriaxone Sodium (Rocephin/Ns 2 Gm/100 Ml) 2 gm in 100 mls @ 200 mls/hr IV Q24HR ARUNA; Protocol Lidocaine (Xylocaine 1% Mpf 5 Ml) 2 ml INFILTRATI ONCE NR Stop: 09/16/18 08:29 Ondansetron HCl (Zofran) 4 mg IV Q6H PRN PRN Reason: Nausea And Vomiting Last Admin: 09/15/18 09:28 Dose: 4 mg Documented by: Oxycodone/Acetaminophen (Percocet 5/325) 1 tab PO Q4H PRN PRN Reason: Pain, Moderate (4-6) Last Admin: 09/15/18 03:20 Dose: 1 tab Documented by: Sodium Chloride (Sodium Chloride Flush Syringe 10 Ml) 10 ml IV BID ARUNA Last Admin: 09/15/18 09:23 Dose: 10 ml Documented by: Sodium Chloride (Sodium Chloride Flush Syringe 10 Ml) 10 ml IV PRN PRN PRN Reason: LINE FLUSH Zolpidem Tartrate (Ambien) 5 mg PO QHS PRN PRN Reason: Insomnia Physical Examination - Physical Exam Narrative exam: Constitutional: Alert. Awake anxious. acute distress, abdominal pain 8/10 on numeric pain scale. Head, Ears, Nose: Normocephalic, atraumatic. External ears, nose normal Eyes: Conjunctivae/corneas clear. No icterus. No ptosis. Neck: Supple, no meningeal signs Oral: dentition fair. No thrush. Cardiovascular: S1, S2 normal. Respiratory: Good air entry, clear to auscultation bilaterally GI: unable to access due to agitation- reports LLQ pain that radiates to the back. Musculoskeletal: No pedal edema, no cyanosis. Skin: No rash or abscess. : Left tubo-ovarian abscess Hem/Lymphatic: No palpable cervical or supraclavicular nodes. No lymphangitis Psych: Mood agitated Affect normal Neurological: Awake, alert, oriented. - Constitutional Vitals: Vital Signs Temp Pulse Resp BP Pulse Ox 98.4 F 81 16 113/72 100 09/15/18 05:54 09/15/18 08:09 09/15/18 05:54 09/15/18 05:54 09/15/18 08:09 Temperature -Last 24 Hours Temperature 98.4 F Temperature 98.6 F Temperature 98.8 F Results - Labs CBC & Chem 7: 09/14/18 16:57 09/14/18 16:57 Labs: Abnormal lab results 09/14/18 09/14/18 09/15/18 Range/Units 16:57 16:57 01:52 WBC 18.4 H (4.5-11.0) K/mm3 Lymph % (Auto) 5.6 L (13.4-35.0) % [place] % (Auto) 9.2 H (0.0-7.3) % Lymph # 1.0 L (1.2-5.4) K/mm3 [place] # 1.7 H (0.0-0.8) K/mm3 Seg Neutrophils % 84.4 H (40.0-70.0) % Seg Neutrophils # 15.5 H (1.8-7.7) K/mm3 Sodium 136 L (137-145) mmol/L Chloride 97.1 L (98-107) mmol/L Lactic Acid 0.60 L (0.7-2.0) mmol/L Magnesium 2.40 H (1.7-2.3) mg/dL Urine WBC (Auto) (0.0-6.0) /HPF U Epithel Cells (Auto) (0-13.0) /HPF 09/15/18 Range/Units 05:53 WBC (4.5-11.0) K/mm3 Lymph % (Auto) (13.4-35.0) % [place] % (Auto) (0.0-7.3) % Lymph # (1.2-5.4) K/mm3 [place] # (0.0-0.8) K/mm3 Seg Neutrophils % (40.0-70.0) % Seg Neutrophils # (1.8-7.7) K/mm3 Sodium (137-145) mmol/L Chloride (98-107) mmol/L Lactic Acid (0.7-2.0) mmol/L Magnesium (1.7-2.3) mg/dL Urine WBC (Auto) 89.0 H (0.0-6.0) /HPF U Epithel Cells (Auto) 14.0 H (0-13.0) /HPF Assessment and Plan Cultures: 09/15/18 Blood: in progress A/P: 38-year old female with no know past medical history that presented to the ED on 09/15/18 with a day history of SOB and constipation for the past 5 days, no relieved by laxatives. She reports associated chills without fever, left lower quadrant abdominal pain radiating to the back, headaches, lightheadedness and generalized weakness. Admitted with: 1. Sepsis on admission: evidenced by Leukoccytosis and tachycardia. Etiology most likely Left tubo-ovarian abscess, +UTI. No fever. Blood and urine cultures are in progress. Currently being treated with Ceftriaxone, Doxycycline and Flagyl. 2. Left tubo-ovarian abscess: Abdomen/Pelvis CT showed a multiloculated fluid collection in the pelvis on the left may represent etiologies such as tubo- ovarian abscess and left ovarian cyst. Scheduled for drainage of tubo-ovarian abscess today however, the CT scanner is broken today. The patient will be scheduled for tomorrow. Dr. Fitch following. 3. UTI: U/A with pyuria. WBC 89 with large LE. Urine culture in progress. 3. Pelvic inflammatory disease: HORSER UP following Plan: -follow-up blood and urine cultures -continue Ceftriaxone 2gm IV every 12 hours -Continue Doxycycline 100 mg IV BID -Continue Flagyl 500mg IV every 8 hours -Order CRP -follow-up surgical cultures after tubo-ovarian abscess drainage -f/u GC and Chlamydia [facility] M: [phone] O:[phone]
--- NOTE | 2018-09-15 16:43 | Event Note ---
Date: 09/15/[address] guided drainage noted scheduled for tomorrow
[2018-09-15] MEDS: TYLENOL PO PRN (17:37)
[2018-09-16] MEDS: DILAUDID IV PRN ×6 (01:49→22:11)
[2018-09-16 05:01] LABS: Basophils % (Auto) 0.2 % (0.0-1.8); Eosinophils # (Auto) 0.1 K/mm3 (0.0-0.4); Eosinophils % (Auto) 0.5 % (0.0-4.3); Hematocrit 28.7 % (30.3-42.9); Hemoglobin 9.2 gm/dl (10.1-14.3); Lymphocytes # (Auto) 1.1 K/mm3 (1.2-5.4); Lymphocytes % (Auto) 6.9 % (13.4-35.0); Mean Corpuscular HGB Conc 32 % (30-34); Mean Corpuscular Volume 86 fl (79-97); Monocytes # (Auto) 1.6 K/mm3 (0.0-0.8); Monocytes % (Auto) 10.7 % (0.0-7.3); Platelet Count 276 K/mm3 (140-440); Red Blood Count 3.35 M/mm3 (3.65-5.03); Red Cell Distribution Width 13.4 % (13.2-15.2)
[2018-09-16 05:20] LABS: BUN/Creatinine Ratio 6; Blood Urea Nitrogen 5 mg/dL (7-17); Calcium 7.6 mg/dL (8.4-10.2); Hemolysis Index 3
[2018-09-16] MEDS: FLAGYL 500 MG/100 ML 500 MG/100 ML BAG IV SCH ×3 (05:24→22:16)
[2018-09-16] MEDS: TYLENOL PO PRN ×3 (06:41→22:13)
[2018-09-16] MEDS: NS/KCL 20MEQ 20 MEQ/1,000 ML BAG IV SCH (08:35)
--- NOTE | 2018-09-16 08:35 | Progress Note ---
Assessment and Plan - Patient Problems (1) PID (acute pelvic inflammatory disease) Current Visit: Yes Status: Acute Plan to address problem: Appears stable in spite of fever. WBC's improved however now febrile. Currently on Rocephin, doxycycline and f lagyl. Scheduled for CT guided drainage/aspiration today. Hopefully before noon according to Dr. Preciado. She was informed she may require surgical intervention if drainage/aspiration can not be performed or no improvement. Laparoscopy/laparotomy explained, she's aware she will have her fallopian tube and ovary removed. Consent was reviewed and signed. She voiced understanding and agrees with plan of care. (2) Constipation Current Visit: Yes Status: Acute (3) Palpitations Current Visit: Yes Status: Resolved (4) Sepsis Current Visit: Yes Status: Acute Qualifiers: Sepsis type: sepsis due to unspecified organism Qualified Code(s): A41.9 - Sepsis, unspecified organism (5) Tubo-ovarian abscess Current Visit: Yes Status: Acute Subjective Date of service: 09/16/18 Patient Reports: Positive: flatus, fever (wants to eat, feels hot). Negative: vomiting Objective Vital Signs - 12hr 09/15/18 09/15/18 09/16/18 21:45 23:01 01:49 Temperature Pulse Rate Respiratory 18 18 18 Rate Blood Pressure Blood Pressure [Right] O2 Sat by Pulse Oximetry 09/16/18 09/16/18 09/16/18 05:42 06:42 07:56 Temperature 101.2 F H 99.7 F H Pulse Rate 99 H 85 Respiratory 18 20 18 Rate Blood Pressure 109/64 Blood Pressure 127/73 [Right] O2 Sat by Pulse 96 96 Oximetry - General physical appearance well developed, well nourished - Respiratory normal expansion, normal respiratory effort, clear to auscultation - Abdomen soft, bowel sounds normal - Neurologic normal coordination, normal sensation - Psychiatric oriented to time, oriented to person, oriented to place, speech is normal - Labs 09/16/18 04:33 09/16/18 04:33 Diabetes panel 09/16/18 Range/Units 04:33 Sodium 138 (137-145) mmol/L Potassium 3.5 L (3.6-5.0) mmol/L Chloride 103.4 (98-107) mmol/L Carbon Dioxide 24 (22-30) mmol/L BUN 5 L (7-17) mg/dL Creatinine 0.9 (0.7-1.2) mg/dL Glucose 107 H (65-100) mg/dL Calcium 7.6 L (8.4-10.2) mg/dL Calcium panel 09/16/18 Range/Units 04:33 Calcium 7.6 L (8.4-10.2) mg/dL Pituitary panel 09/16/18 Range/Units 04:33 Sodium 138 (137-145) mmol/L Potassium 3.5 L (3.6-5.0) mmol/L Chloride 103.4 (98-107) mmol/L Carbon Dioxide 24 (22-30) mmol/L BUN 5 L (7-17) mg/dL Creatinine 0.9 (0.7-1.2) mg/dL Glucose 107 H (65-100) mg/dL Calcium 7.6 L (8.4-10.2) mg/dL Adrenal panel 09/16/18 Range/Units 04:33 Sodium 138 (137-145) mmol/L Potassium 3.5 L (3.6-5.0) mmol/L Chloride 103.4 (98-107) mmol/L Carbon Dioxide 24 (22-30) mmol/L BUN 5 L (7-17) mg/dL Creatinine 0.9 (0.7-1.2) mg/dL Glucose 107 H (65-100) mg/dL Calcium 7.6 L (8.4-10.2) mg/dL
[2018-09-16] MEDS ORDERED: VERSED IV NR (08:46)
[2018-09-16] MEDS ORDERED: SUBLIMAZE IV NR (08:46)
[2018-09-16] MEDS: DOXYCYCLINE HYCLATE 100 MG in NACL 0.9% 250ML 250 ML IV SCH ×2 (09:26→22:26)
[2018-09-16] MEDS: SODIUM CHLORIDE FLUSH SYRINGE 10 ML IV SCH (09:26)
[2018-09-16] MEDS: PEPCID IV SCH (09:26)
[2018-09-16] MEDS: ROCEPHIN/NS 2 GM/100 ML 2 GM/100 ML BAG IV SCH (11:06)
[2018-09-16] MEDS ORDERED: VERSED IV ONE (12:12)
[2018-09-16] MEDS ORDERED: SUBLIMAZE ONE ×3 (12:12→13:45)
[2018-09-16] MEDS ORDERED: NACL 0.9% 500 ML 500 ML ONE (12:13)
--- NOTE | 2018-09-16 12:13 | Progress Note ---
Assessment and Plan Assessment and plan: Left tubo-ovarian abscess For CT guided drainage today Sepsis due to left tubo-ovarian abscess, POA ID following On Ceftriaxone, doxycycline leukocytosis due to sepsis/abscess Full code status History Interval history: Abdominal pain Hospitalist Physical - Physical exam Narrative exam: General: Not in acute distress, sitting up in bed, HEENT: Normocephalic, atraumatic Neck: supple, no JVD Heart: S1 and S2 reg, no murmurs, rubs or gallop Lungs: Clear, no crackles, no wheeze Abd: soft, mild tender, non distended, normal BS Ext: No edema, no clubbing, no cyanosis, Neuro: Awake,alert, oriented x 3, moves all ext, non focal - Constitutional Vitals: Temp Pulse Resp BP Pulse Ox 99.2 F 81 18 122/78 99 09/16/18 11:40 09/16/18 11:41 09/16/18 11:40 09/16/18 11:40 09/16/18 11:41 General appearance: Present: no acute distress Results - Labs CBC & Chem 7: 09/16/18 04:33 09/16/18 04:33 Labs: Laboratory Last Values WBC 15.3 K/mm3 (4.5-11.0) H 09/16/18 04:33 RBC 3.35 M/mm3 (3.65-5.03) L 09/16/18 04:33 Hgb 9.2 gm/dl (10.1-14.3) L 09/16/18 04:33 Hct 28.7 % (30.3-42.9) L 09/16/18 04:33 MCV 86 fl (79-97) 09/16/18 04:33 MCH 28 pg (28-32) 09/16/18 04:33 MCHC 32 % (30-34) 09/16/18 04:33 RDW 13.4 % (13.2-15.2) 09/16/18 04:33 Plt Count 276 K/mm3 (140-440) 09/16/18 04:33 Lymph % (Auto) 6.9 % (13.4-35.0) L 09/16/18 04:33 [place] % (Auto) 10.7 % (0.0-7.3) H 09/16/18 04:33 Eos % (Auto) 0.5 % (0.0-4.3) 09/16/18 04:33 Baso % (Auto) 0.2 % (0.0-1.8) 09/16/18 04:33 Lymph # 1.1 K/mm3 (1.2-5.4) L 09/16/18 04:33 [place] # 1.6 K/mm3 (0.0-0.8) H 09/16/18 04:33 Eos # 0.1 K/mm3 (0.0-0.4) 09/16/18 04:33 Baso # 0.0 K/mm3 (0.0-0.1) 09/16/18 04:33 Seg Neutrophils % 81.7 % (40.0-70.0) H 09/16/18 04:33 Seg Neutrophils # 12.5 K/mm3 (1.8-7.7) H 09/16/18 04:33 PT 14.4 Sec. (12.2-14.9) 09/15/18 03:19 INR 1.05 (0.87-1.13) 09/15/18 03:19 Sodium 138 mmol/L (137-145) 09/16/18 04:33 Potassium 3.5 mmol/L (3.6-5.0) L 09/16/18 04:33 Chloride 103.4 mmol/L (98-107) 09/16/18 04:33 Carbon Dioxide 24 mmol/L (22-30) 09/16/18 04:33 14 mmol/L 09/16/18 04:33 BUN 5 mg/dL (7-17) L 09/16/18 04:33 0.9 mg/dL (0.7-1.2) 09/16/18 04:33 Estimated GFR > 60 ml/min 09/16/18 04:33 6 % 09/16/18 04:33 Glucose 107 mg/dL (65-100) H 09/16/18 04:33 Lactic Acid 0.80 mmol/L (0.7-2.0) 09/15/18 03:19 Calcium 7.6 mg/dL (8.4-10.2) L 09/16/18 04:33 Magnesium 2.40 mg/dL (1.7-2.3) H 09/14/18 16:57 < 0.010 ng/mL (0.00-0.029) 09/14/18 16:57 26.70 mg/dL (0.00-1.30) H 09/16/18 00:33 HCG, Qual Negative (Negative) 09/14/18 21:31 Yellow (Yellow) 09/15/18 05:53 Cloudy (Clear) 09/15/18 05:53 6.0 (5.0-7.0) 09/15/18 05:53 Ur Specific [place] 1.028 (1.003-1.030) 09/15/18 05:53 30 mg/dl mg/dL (Negative) 09/15/18 05:53 Neg mg/dL (Negative) 09/15/18 05:53 20 mg/dL (Negative) 09/15/18 05:53 Lg (Negative) 09/15/18 05:53 Neg (Negative) 09/15/18 05:53 Neg (Negative) 09/15/18 05:53 < 2.0 mg/dL (<2.0) 09/15/18 05:53 Ur Leukocyte Esterase Lg (Negative) 09/15/18 05:53 89.0 /HPF (0.0-6.0) H 09/15/18 05:53 174.0 /HPF (0.0-6.0) 09/15/18 05:53 U Epithel Cells (Auto) 14.0 /HPF (0-13.0) H 09/15/18 05:53 1+ /HPF (Negative) 09/15/18 05:53 2+ /HPF 09/15/18 05:53 Few /HPF 09/15/18 05:53 Blood Type B POSITIVE 09/16/18 09:32 Antibody Screen Negative 09/16/18 09:32 Active Medications - Current Medications Current Medications: Generic Name Dose Route Start Last Admin Trade Name Freq PRN Reason Stop Dose Admin Acetaminophen 650 mg 09/15/18 08:30 09/16/18 06:41 Tylenol PO 650 mg Q6H PRN Administration Pain MILD(1-3)/Fever >100.5/RIBEIRO Famotidine 20 mg 09/15/18 10:00 09/16/18 09:26 Pepcid IV 20 mg DAILY ARUNA Administration Fentanyl 100 mcg 09/16/18 08:46 Sublimaze IV 09/16/18 16:00 ONCE NR Hydromorphone HCl 0.5 mg 09/15/18 02:49 09/16/18 09:35 Dilaudid IV 0.5 mg Q3H PRN Administration Pain , Severe (7-10) Potassium Chloride/Sodium Chloride 20 meq in 1,000 mls @ 100 mls/hr 09/15/18 03:00 09/16/18 08:35 Ns/Kcl 20meq IV 100 mls/hr DIRECT ARUNA Administration Doxycycline Hyclate 100 mg/ 250 mls @ 250 mls/hr 09/15/18 10:00 09/16/18 09:26 Sodium Chloride IV 250 mls/hr Q12HR ARUNA Administration Protocol Metronidazole 500 mg in 100 mls @ 100 mls/hr 09/15/18 09:00 09/16/18 05:24 Flagyl 500 Mg/100 Ml IV 100 mls/hr Q8HR ARUNA Administration Protocol Ceftriaxone Sodium 2 gm in 100 mls @ 200 mls/hr 09/16/18 10:00 09/16/18 11:06 Rocephin/Ns 2 Gm/100 Ml IV 200 mls/hr Q24HR ARUNA Administration Protocol Midazolam HCl 5 mg 09/16/18 08:46 Versed IV 09/16/18 16:00 ONCE NR Ondansetron HCl 4 mg 09/15/18 02:49 09/15/18 09:28 Zofran IV 4 mg Q6H PRN Administration Nausea And Vomiting Oxycodone/Acetaminophen 1 tab 09/15/18 02:49 09/15/18 21:45 Percocet 5/325 PO 1 tab Q4H PRN Administration Pain, Moderate (4-6) Sodium Chloride 10 ml 09/15/18 10:00 09/16/18 09:26 Sodium Chloride Flush Syringe 10 Ml IV Not Given BID ARUNA Sodium Chloride 10 ml 09/15/18 02:49 Sodium Chloride Flush Syringe 10 Ml IV PRN PRN LINE FLUSH Zolpidem Tartrate 5 mg 09/15/18 02:49 Ambien PO QHS PRN Insomnia
[2018-09-16] MEDS ORDERED: XYLOCAINE 1%/ EPI 1:100,000 INFILTRATI ONE (13:00)
[2018-09-16] MEDS ORDERED: SUBLIMAZE IV ONE (14:00)
--- NOTE | 2018-09-16 14:11 | Post Operative Note ---
Date of procedure: 09/16/18 Pre-op diagnosis: Left TOA Post-op diagnosis: same Procedure: CT guided drainage of left TOA through a left transgluteal approach using an 8 Fr APD drain Anesthesia: local (w/ conscious sedation) Surgeon: SUBHASH GOTTI Estimated blood loss: minimal Specimen disposition: to lab Condition: stable Disposition: floor
--- NOTE | 2018-09-16 14:53 | Progress Note ---
Assessment and Plan Assessment and Plan Cultures: 09/15/18 Blood culture no growth today 09/15/18 urine culture no growth today 09/16/18 Blood culture no growth today A/P: 38-year old female with no know past medical history that presented to the ED on 09/15/18 with a day history of SOB and constipation for the past 5 days, no relieved by laxatives. She reports associated chills without fever, left lower quadrant abdominal pain radiating to the back, headaches, lightheadedness and generalized weakness. Admitted with: 1. Sepsis on admission: now fever, leukocytosis better. Etiology most likely Left tubo-ovarian abscess +/- UTI. No fever. 2. Left tubo-ovarian abscessPID: S/P IUD removal. Abdomen/Pelvis CT showed a multiloculated fluid collection in the pelvis on the left may represent etiologies such as tubo-ovarian abscess and left ovarian cyst. S/P CT guided drainage 100 mL purulent material removed. CRP=22 3. UTI: U/A with pyuria. WBC 89 with large LE. Urine culture no growth. Plan: -follow-up drainage cultures -continue Ceftriaxone 2gm IV every 24 hours D2 -Continue Doxycycline 100 mg IV BID D2 -Continue Flagyl 500mg IV every 8 hours D2 -f/u GC and Chlamydia - if clinically better will d/c home on doxycycline 100 mg po BID and flagyl 500 mg PO BID total 14 days Will follow Jade Campa MD Infectious Diseases [employer] Merchandiser [facility] M [phone] O [phone] Subjective Date of service: 09/16/18 Principal diagnosis: TOA Interval history: Patient feels better, came from IR drainage, noted fever, pelvic pain better. ROS: denies N/V/D, cough rest neg Objective - Exam Narrative Exam: Constitutional: Alert.in NAD Head, Ears, Nose: Normocephalic, atraumatic. External ears, nose normal Eyes: Conjunctivae/corneas clear. No icterus. No ptosis. Neck: Supple, no meningeal signs Oral: dentition fair. No thrush. Cardiovascular: RRR Respiratory: Good air entry, clear to auscultation bilaterally GI: soft No TTP +drain with gross purulence Musculoskeletal: No pedal edema, no cyanosis. Skin: No rash or abscess. Hem/Lymphatic: No palpable cervical or supraclavicular nodes. No lymphangitis Psych: Mood agitated Affect normal Neurological: Awake, alert, oriented. - Constitutional Vitals: Vital Signs Temp Pulse Resp BP Pulse Ox 99.2 F 96 H 18 114/84 95 09/16/18 11:40 09/16/18 13:52 09/16/18 13:44 09/16/18 13:52 09/16/18 13:52 Temperature -Last 24 Hours Temperature 99.2 F Temperature 99.7 F Temperature 101.2 F Temperature 98.7 F Temperature 103 F - Labs CBC & Chem 7: 09/16/18 04:33 09/16/18 04:33 Labs: Abnormal lab results 09/16/18 09/16/18 09/16/18 Range/Units 00:33 04:33 04:33 WBC 15.3 H (4.5-11.0) K/mm3 RBC 3.35 L (3.65-5.03) M/mm3 Hgb 9.2 L (10.1-14.3) gm/dl Hct 28.7 L (30.3-42.9) % Lymph % (Auto) 6.9 L (13.4-35.0) % [place] % (Auto) 10.7 H (0.0-7.3) % Lymph # 1.1 L (1.2-5.4) K/mm3 [place] # 1.6 H (0.0-0.8) K/mm3 Seg Neutrophils % 81.7 H (40.0-70.0) % Seg Neutrophils # 12.5 H (1.8-7.7) K/mm3 Potassium 3.5 L (3.6-5.0) mmol/L BUN 5 L (7-17) mg/dL Glucose 107 H (65-100) mg/dL Calcium 7.6 L (8.4-10.2) mg/dL C-Reactive Protein 26.70 H (0.00-1.30) mg/dL
--- NOTE | 2018-09-16 16:11 | Cat Scan Report ---
EXAM: CT guided left transgluteal tubo-ovarian abscess 8 [place] drain placement CLINICAL INDICATION: Left tubo-ovarian abscess with fever and pain DATE: 09/16/18 TRAILER ASSEMBLER: SUBHASH GOTTI MD MEDICATIONS: Conscious sedation using Versed and fentanyl was performed under guidance of radiologic nursing. Continuous cardiopulmonary monitoring was utilized. PROCEDURE: Following an explanation of the risks, benefits and alternatives; written informed consent was obtained. The patient was brought to the CT suite and placed in the prone position on the CT table. Medical Records Technician CT was performed of the pelvis. After determining the appropriate site, the skin was infiltrated with lidocaine and a finder needle was placed. Intermittent CT was performed until the desired position was identified. The 18 gauge trocar needle was inserted into the left tubo-ovarian complex. Aspiration was performed and sent to the lab for analysis. J wire was then advanced through the needle and into the collection. The needle was exchanged for multiple dilators that were used to serially dilate over the wire. A 8 Fr APD drain was advanced over the wire and metal stiffener. The metal stiffener and wire were removed. Final CT scanning was performed. The pigtail was secured and aspirated until no more material could be aspirated. Sterile bandage was applied. The patient tolerated the procedure well. There were no immediate postprocedural complications. FINDINGS: 1. Initial CT demonstrates left tubo-ovarian complex. There is a satisfactory window for CT drainage. 2. Intermittent CT demonstrates the 18 gauge needle was placed in the left tubo-ovarian complex. 3. Wire is coiled in the left tubo-ovarian fluid collection. 4. Final CT documents placement of a 8 Fr drain in the left tubo-ovarian fluid collection. 5. A total of 100 mL of purulent material was aspirated through the drain and initial needle. IMPRESSION: Successful CT guided left transgluteal tubo-ovarian 8 [place] drain placement in a fluid collection/abscess.
[2018-09-16] MEDS: ZOFRAN IV PRN (22:14)
[2018-09-16] MEDS: AMBIEN PO PRN (22:14)
[2018-09-17] MEDS: DILAUDID IV PRN ×5 (02:19→21:33)
[2018-09-17] MEDS: SODIUM CHLORIDE FLUSH SYRINGE 10 ML IV SCH ×3 (02:30→21:34)
[2018-09-17] MEDS: PERCOCET 5/325 PO PRN (05:53)
[2018-09-17] MEDS: FLAGYL 500 MG/100 ML 500 MG/100 ML BAG IV SCH ×3 (05:56→21:33)
[2018-09-17 08:29] LABS: Hematocrit 27.2 % (30.3-42.9); Hemoglobin 8.9 gm/dl (10.1-14.3); Mean Corpuscular HGB Conc 33 % (30-34); Mean Corpuscular Volume 84 fl (79-97); Platelet Count 333 K/mm3 (140-440); Red Blood Count 3.22 M/mm3 (3.65-5.03); Red Cell Distribution Width 13.8 % (13.2-15.2)
[2018-09-17 08:38] LABS: BUN/Creatinine Ratio 5; Blood Urea Nitrogen 4 mg/dL (7-17); Calcium 8.2 mg/dL (8.4-10.2); Hemolysis Index 13
[2018-09-17] MEDS: PEPCID IV SCH (09:06)
[2018-09-17] MEDS: DOXYCYCLINE HYCLATE 100 MG in NACL 0.9% 250ML 250 ML IV SCH (09:07)
--- NOTE | 2018-09-17 11:55 | Progress Note ---
Assessment and Plan Assessment and plan: Left tubo-ovarian abscess s/p CT guided drainage done yesterday 09/[address] Sepsis due to left tubo-ovarian abscess, POA ID following On Ceftriaxone, doxycycline leukocytosis due to sepsis/abscess Full code status History Interval history: Abdominal pain back pain Hospitalist Physical - Physical exam Narrative exam: General: Not in acute distress, sitting up in bed, HEENT: Normocephalic, atraumatic Neck: supple, no JVD Heart: S1 and S2 reg, no murmurs, rubs or gallop Lungs: Clear, no crackles, no wheeze Abd: soft, mild tender, non distended, normal BS, surgical drain pelvis Ext: No edema, no clubbing, no cyanosis, Neuro: Awake,alert, oriented x 3, moves all ext, non focal - Constitutional Vitals: Temp Pulse Resp BP Pulse Ox 99.6 F 86 18 116/72 100 09/17/18 07:53 09/17/18 04:49 09/17/18 07:53 09/17/18 07:53 09/17/18 04:49 General appearance: Present: no acute distress Results - Labs CBC & Chem 7: 09/17/18 08:17 09/17/18 08:17 Labs: Laboratory Last Values WBC 18.7 K/mm3 (4.5-11.0) H 09/17/18 08:17 RBC 3.22 M/mm3 (3.65-5.03) L 09/17/18 08:17 Hgb 8.9 gm/dl (10.1-14.3) L 09/17/18 08:17 Hct 27.2 % (30.3-42.9) L 09/17/18 08:17 MCV 84 fl (79-97) 09/17/18 08:17 MCH 28 pg (28-32) 09/17/18 08:17 MCHC 33 % (30-34) 09/17/18 08:17 RDW 13.8 % (13.2-15.2) 09/17/18 08:17 Plt Count 333 K/mm3 (140-440) 09/17/18 08:17 Lymph % (Auto) 6.9 % (13.4-35.0) L 09/16/18 04:33 [place] % (Auto) 10.7 % (0.0-7.3) H 09/16/18 04:33 Eos % (Auto) 0.5 % (0.0-4.3) 09/16/18 04:33 Baso % (Auto) 0.2 % (0.0-1.8) 09/16/18 04:33 Lymph # 1.1 K/mm3 (1.2-5.4) L 09/16/18 04:33 [place] # 1.6 K/mm3 (0.0-0.8) H 09/16/18 04:33 Eos # 0.1 K/mm3 (0.0-0.4) 09/16/18 04:33 Baso # 0.0 K/mm3 (0.0-0.1) 09/16/18 04:33 Seg Neutrophils % 81.7 % (40.0-70.0) H 09/16/18 04:33 Seg Neutrophils # 12.5 K/mm3 (1.8-7.7) H 09/16/18 04:33 PT 14.4 Sec. (12.2-14.9) 09/15/18 03:19 INR 1.05 (0.87-1.13) 09/15/18 03:19 Sodium 136 mmol/L (137-145) L 09/17/18 08:17 Potassium 4.4 mmol/L (3.6-5.0) D 09/17/18 08:17 Chloride 102.8 mmol/L (98-107) 09/17/18 08:17 Carbon Dioxide 25 mmol/L (22-30) 09/17/18 08:17 13 mmol/L 09/17/18 08:17 BUN 4 mg/dL (7-17) L 09/17/18 08:17 0.8 mg/dL (0.7-1.2) 09/17/18 08:17 Estimated GFR > 60 ml/min 09/17/18 08:17 5 % 09/17/18 08:17 Glucose 115 mg/dL (65-100) H 09/17/18 08:17 Lactic Acid 0.80 mmol/L (0.7-2.0) 09/15/18 03:19 Calcium 8.2 mg/dL (8.4-10.2) L 09/17/18 08:17 Magnesium 2.40 mg/dL (1.7-2.3) H 09/14/18 16:57 < 0.010 ng/mL (0.00-0.029) 09/14/18 16:57 26.70 mg/dL (0.00-1.30) H 09/16/18 00:33 HCG, Qual Negative (Negative) 09/14/18 21:31 Yellow (Yellow) 09/15/18 05:53 Cloudy (Clear) 09/15/18 05:53 6.0 (5.0-7.0) 09/15/18 05:53 Ur Specific [place] 1.028 (1.003-1.030) 09/15/18 05:53 30 mg/dl mg/dL (Negative) 09/15/18 05:53 Neg mg/dL (Negative) 09/15/18 05:53 20 mg/dL (Negative) 09/15/18 05:53 Lg (Negative) 09/15/18 05:53 Neg (Negative) 09/15/18 05:53 Neg (Negative) 09/15/18 05:53 < 2.0 mg/dL (<2.0) 09/15/18 05:53 Ur Leukocyte Esterase Lg (Negative) 09/15/18 05:53 89.0 /HPF (0.0-6.0) H 09/15/18 05:53 174.0 /HPF (0.0-6.0) 09/15/18 05:53 U Epithel Cells (Auto) 14.0 /HPF (0-13.0) H 09/15/18 05:53 1+ /HPF (Negative) 09/15/18 05:53 2+ /HPF 09/15/18 05:53 Few /HPF 09/15/18 05:53 Blood Type B POSITIVE 09/16/18 09:32 Antibody Screen Negative 09/16/18 09:32 Active Medications - Current Medications Current Medications: Generic Name Dose Route Start Last Admin Trade Name Freq PRN Reason Stop Dose Admin Acetaminophen 650 mg 09/15/18 08:30 09/16/18 22:13 Tylenol PO 650 mg Q6H PRN Administration Pain MILD(1-3)/Fever >100.5/RIBEIRO Famotidine 20 mg 09/15/18 10:00 09/17/18 09:06 Pepcid IV 20 mg DAILY ARUNA Administration Hydromorphone HCl 0.5 mg 09/15/18 02:49 09/17/18 09:06 Dilaudid IV 0.5 mg Q3H PRN Administration Pain , Severe (7-10) Potassium Chloride/Sodium Chloride 20 meq in 1,000 mls @ 100 mls/hr 09/15/18 03:00 09/16/18 08:35 Ns/Kcl 20meq IV 100 mls/hr DIRECT ARUNA Administration Doxycycline Hyclate 100 mg/ 250 mls @ 250 mls/hr 09/15/18 10:00 09/17/18 09:07 Sodium Chloride IV 100 mls/hr Q12HR ARUNA Administration Protocol Metronidazole 500 mg in 100 mls @ 100 mls/hr 09/15/18 09:00 09/17/18 05:56 Flagyl 500 Mg/100 Ml IV 100 mls/hr Q8HR ARUNA Administration Protocol Ceftriaxone Sodium 2 gm in 100 mls @ 200 mls/hr 09/16/18 10:00 09/16/18 22:19 Rocephin/Ns 2 Gm/100 Ml IV Infused Q24HR ARUNA Infusion Protocol Ondansetron HCl 4 mg 09/15/18 02:49 09/16/18 22:14 Zofran IV 4 mg Q6H PRN Administration Nausea And Vomiting Oxycodone/Acetaminophen 1 tab 09/15/18 02:49 09/17/18 05:53 Percocet 5/325 PO 1 tab Q4H PRN Administration Pain, Moderate (4-6) Sodium Chloride 10 ml 09/15/18 10:00 09/17/18 09:07 Sodium Chloride Flush Syringe 10 Ml IV 10 ml BID ARUNA Administration Sodium Chloride 10 ml 09/15/18 02:49 Sodium Chloride Flush Syringe 10 Ml IV PRN PRN LINE FLUSH Zolpidem Tartrate 5 mg 09/15/18 02:49 09/16/18 22:14 Ambien PO 5 mg QHS PRN Administration Insomnia
[2018-09-17] MEDS: ROCEPHIN/NS 2 GM/100 ML 2 GM/100 ML BAG IV SCH (12:06)
--- NOTE | 2018-09-17 12:19 | Progress Note ---
Assessment and Plan Assessment and Plan Cultures: 09/15/18 Blood culture no growth today 09/15/18 urine culture no growth today 09/16/18 Blood culture no growth today A/P: 38-year old female with no know past medical history that presented to the ED on 09/15/18 with a day history of SOB and constipation for the past 5 days, no relieved by laxatives. She reports associated chills without fever, left lower quadrant abdominal pain radiating to the back, headaches, lightheadedness and generalized weakness. Admitted with: 1. Sepsis on admission: still low grade fever, leukocytosis worsening. Etiology most likely Left tubo-ovarian abscess +/- UTI. No fever. 2. Left tubo-ovarian abscessPID: S/P IUD removal. Abdomen/Pelvis CT showed a multiloculated fluid collection in the pelvis on the left may represent etiologies such as tubo-ovarian abscess and left ovarian cyst. S/P CT guided drainage 100 mL purulent material removed. CRP=22 3. UTI: U/A with pyuria. WBC 89 with large LE. Urine culture no growth. Plan: -monitor during the weekend - leukocytosis worsening -follow-up drainage cultures -continue Ceftriaxone 2gm IV every 24 hours D3 -Continue Doxycycline 100 mg IV BID D3 -Continue Flagyl 500mg IV every 8 hours D3 -f/u GC and Chlamydia -if clinically better will d/c home on levaquin 750 mg PO QDAY, doxycycline 100 mg po BID and flagyl 500 mg PO BID total 14 days Will follow Jade Campa MD Infectious Diseases Die Cast Operator [facility] M [phone] O [phone] Subjective Date of service: 09/17/18 Principal diagnosis: TOA Interval history: Patient feels better, still pelvic pain, no fever. ROS: denies N/V/D, cough rest neg Objective - Exam Narrative Exam: Constitutional: Alert.in NAD Head, Ears, Nose: Normocephalic, atraumatic. External ears, nose normal Eyes: Conjunctivae/corneas clear. No icterus. No ptosis. Neck: Supple, no meningeal signs Oral: dentition fair. No thrush. Cardiovascular: RRR Respiratory: Good air entry, clear to auscultation bilaterally GI: soft No TTP +drain with bloody drainage Musculoskeletal: No pedal edema, no cyanosis. Skin: No rash or abscess. Hem/Lymphatic: No palpable cervical or supraclavicular nodes. No lymphangitis Psych: Mood agitated Affect normal Neurological: Awake, alert, oriented. - Constitutional Vitals: Vital Signs Temp Pulse Resp BP Pulse Ox 99.6 F 86 18 116/72 100 09/17/18 07:53 09/17/18 04:49 09/17/18 07:53 09/17/18 07:53 09/17/18 04:49 Temperature -Last 24 Hours Temperature 99.6 F Temperature 98.8 F Temperature 98.6 F Temperature 100.4 F Temperature 100.4 F - Labs CBC & Chem 7: 09/17/18 08:17 09/17/18 08:17 Labs: Abnormal lab results 09/17/18 09/17/18 Range/Units 08:17 08:17 WBC 18.7 H (4.5-11.0) K/mm3 RBC 3.22 L (3.65-5.03) M/mm3 Hgb 8.9 L (10.1-14.3) gm/dl Hct 27.2 L (30.3-42.9) % Sodium 136 L (137-145) mmol/L BUN 4 L (7-17) mg/dL Glucose 115 H (65-100) mg/dL Calcium 8.2 L (8.4-10.2) mg/dL
[2018-09-17] MEDS: TYLENOL PO PRN (17:19)
--- NOTE | 2018-09-17 19:50 | Event Note ---
Date: 09/17/18 Patient lying on her stomach, comfortably in bed who complains of minimal pain. Vital signs stable temperature 99.7 degrees Bandages clean and dry without minimal drainage noted. Assessment: TOA status post CT-guided drainage improving Plan: Will follow antibiotic regimen per Dr. Ohara's note
[2018-09-17] MEDS: AMBIEN PO PRN (23:20)
[2018-09-18] MEDS: DOXYCYCLINE HYCLATE 100 MG in NACL 0.9% 250ML 250 ML IV SCH ×2 (00:29→10:31)
[2018-09-18] MEDS: DILAUDID IV PRN ×5 (04:08→23:30)
[2018-09-18 04:56] LABS: Hematocrit 27.1 % (30.3-42.9); Hemoglobin 8.8 gm/dl (10.1-14.3); Mean Corpuscular HGB Conc 32 % (30-34); Mean Corpuscular Volume 84 fl (79-97); Platelet Count 384 K/mm3 (140-440); Red Blood Count 3.21 M/mm3 (3.65-5.03); Red Cell Distribution Width 14.1 % (13.2-15.2)
[2018-09-18 05:16] LABS: BUN/Creatinine Ratio 4; Blood Urea Nitrogen 3 mg/dL (7-17); Calcium 8.1 mg/dL (8.4-10.2); Hemolysis Index 4
[2018-09-18] MEDS: FLAGYL 500 MG/100 ML 500 MG/100 ML BAG IV SCH ×3 (06:05→23:03)
[2018-09-18] MEDS: PEPCID PO SCH ×2 (08:17→10:05)
[2018-09-18] MEDS: ROCEPHIN/NS 2 GM/100 ML 2 GM/100 ML BAG IV SCH (09:30)
[2018-09-18] MEDS: SODIUM CHLORIDE FLUSH SYRINGE 10 ML IV SCH ×2 (10:05→23:31)
[2018-09-18] MEDS: ZOFRAN IV PRN (12:13)
--- NOTE | 2018-09-18 12:13 | Progress Note ---
Assessment and Plan Assessment and plan: Left tubo-ovarian abscess s/p CT guided drainage done 09/[address] Sepsis due to left tubo-ovarian abscess, POA ID following On Ceftriaxone, doxycycline leukocytosis due to sepsis/abscess Full code status History Interval history: Abdominal pain back pain Hospitalist Physical - Physical exam Narrative exam: General: Not in acute distress, sitting up in bed, HEENT: Normocephalic, atraumatic Neck: supple, no JVD Heart: S1 and S2 reg, no murmurs, rubs or gallop Lungs: Clear, no crackles, no wheeze Abd: soft, mild tender, non distended, normal BS, surgical drain pelvis Ext: No edema, no clubbing, no cyanosis, Neuro: Awake,alert, oriented x 3, moves all ext, non focal - Constitutional Vitals: Temp Pulse Resp BP Pulse Ox 98.6 F 77 18 136/93 100 09/18/18 11:00 09/18/18 11:00 09/18/18 11:00 09/18/18 11:00 09/18/18 11:00 General appearance: Present: no acute distress Results - Labs CBC & Chem 7: 09/18/18 04:37 09/18/18 04:37 Labs: Laboratory Last Values WBC 14.3 K/mm3 (4.5-11.0) H 09/18/18 04:37 RBC 3.21 M/mm3 (3.65-5.03) L 09/18/18 04:37 Hgb 8.8 gm/dl (10.1-14.3) L 09/18/18 04:37 Hct 27.1 % (30.3-42.9) L 09/18/18 04:37 MCV 84 fl (79-97) 09/18/18 04:37 MCH 27 pg (28-32) L 09/18/18 04:37 MCHC 32 % (30-34) 09/18/18 04:37 RDW 14.1 % (13.2-15.2) 09/18/18 04:37 Plt Count 384 K/mm3 (140-440) 09/18/18 04:37 Lymph % (Auto) 6.9 % (13.4-35.0) L 09/16/18 04:33 [place] % (Auto) 10.7 % (0.0-7.3) H 09/16/18 04:33 Eos % (Auto) 0.5 % (0.0-4.3) 09/16/18 04:33 Baso % (Auto) 0.2 % (0.0-1.8) 09/16/18 04:33 Lymph # 1.1 K/mm3 (1.2-5.4) L 09/16/18 04:33 [place] # 1.6 K/mm3 (0.0-0.8) H 09/16/18 04:33 Eos # 0.1 K/mm3 (0.0-0.4) 09/16/18 04:33 Baso # 0.0 K/mm3 (0.0-0.1) 09/16/18 04:33 Seg Neutrophils % 81.7 % (40.0-70.0) H 09/16/18 04:33 Seg Neutrophils # 12.5 K/mm3 (1.8-7.7) H 09/16/18 04:33 PT 14.4 Sec. (12.2-14.9) 09/15/18 03:19 INR 1.05 (0.87-1.13) 09/15/18 03:19 Sodium 139 mmol/L (137-145) 09/18/18 04:37 Potassium 3.8 mmol/L (3.6-5.0) 09/18/18 04:37 Chloride 104.4 mmol/L (98-107) 09/18/18 04:37 Carbon Dioxide 24 mmol/L (22-30) 09/18/18 04:37 14 mmol/L 09/18/18 04:37 BUN 3 mg/dL (7-17) L 09/18/18 04:37 0.8 mg/dL (0.7-1.2) 09/18/18 04:37 Estimated GFR > 60 ml/min 09/18/18 04:37 4 % 09/18/18 04:37 Glucose 102 mg/dL (65-100) H 09/18/18 04:37 Lactic Acid 0.80 mmol/L (0.7-2.0) 09/15/18 03:19 Calcium 8.1 mg/dL (8.4-10.2) L 09/18/18 04:37 Magnesium 2.40 mg/dL (1.7-2.3) H 09/14/18 16:57 < 0.010 ng/mL (0.00-0.029) 09/14/18 16:57 26.70 mg/dL (0.00-1.30) H 09/16/18 00:33 HCG, Qual Negative (Negative) 09/14/18 21:31 Yellow (Yellow) 09/15/18 05:53 Cloudy (Clear) 09/15/18 05:53 6.0 (5.0-7.0) 09/15/18 05:53 Ur Specific [place] 1.028 (1.003-1.030) 09/15/18 05:53 30 mg/dl mg/dL (Negative) 09/15/18 05:53 Neg mg/dL (Negative) 09/15/18 05:53 20 mg/dL (Negative) 09/15/18 05:53 Lg (Negative) 09/15/18 05:53 Neg (Negative) 09/15/18 05:53 Neg (Negative) 09/15/18 05:53 < 2.0 mg/dL (<2.0) 09/15/18 05:53 Ur Leukocyte Esterase Lg (Negative) 09/15/18 05:53 89.0 /HPF (0.0-6.0) H 09/15/18 05:53 174.0 /HPF (0.0-6.0) 09/15/18 05:53 U Epithel Cells (Auto) 14.0 /HPF (0-13.0) H 09/15/18 05:53 1+ /HPF (Negative) 09/15/18 05:53 2+ /HPF 09/15/18 05:53 Few /HPF 09/15/18 05:53 Blood Type B POSITIVE 09/16/18 09:32 Antibody Screen Negative 09/16/18 09:32 Active Medications - Current Medications Current Medications: Generic Name Dose Route Start Last Admin Trade Name Freq PRN Reason Stop Dose Admin Acetaminophen 650 mg 09/15/18 08:30 09/17/18 17:19 Tylenol PO 650 mg Q6H PRN Administration Pain MILD(1-3)/Fever >100.5/RIBEIRO Famotidine 20 mg 09/18/18 10:00 09/18/18 10:05 Pepcid PO Not Given DAILY ARUNA Hydromorphone HCl 0.5 mg 09/15/18 02:49 09/18/18 08:11 Dilaudid IV 0.5 mg Q3H PRN Administration Pain , Severe (7-10) Potassium Chloride/Sodium Chloride 20 meq in 1,000 mls @ 100 mls/hr 09/15/18 03:00 09/16/18 08:35 Ns/Kcl 20meq IV 100 mls/hr DIRECT ARUNA Administration Doxycycline Hyclate 100 mg/ 250 mls @ 250 mls/hr 09/15/18 10:00 09/18/18 00:29 Sodium Chloride IV 100 mls/hr Q12HR ARUNA Administration Protocol Metronidazole 500 mg in 100 mls @ 100 mls/hr 09/15/18 09:00 09/18/18 06:05 Flagyl 500 Mg/100 Ml IV 100 mls/hr Q8HR ARUNA Administration Protocol Ceftriaxone Sodium 2 gm in 100 mls @ 200 mls/hr 09/16/18 10:00 09/17/18 12:06 Rocephin/Ns 2 Gm/100 Ml IV 100 mls/hr Q24HR ARUNA Administration Protocol Ondansetron HCl 4 mg 09/15/18 02:49 09/16/18 22:14 Zofran IV 4 mg Q6H PRN Administration Nausea And Vomiting Oxycodone/Acetaminophen 1 tab 09/15/18 02:49 09/17/18 05:53 Percocet 5/325 PO 1 tab Q4H PRN Administration Pain, Moderate (4-6) Sodium Chloride 10 ml 09/15/18 10:00 09/18/18 10:05 Sodium Chloride Flush Syringe 10 Ml IV Not Given BID ARUNA Sodium Chloride 10 ml 09/15/18 02:49 Sodium Chloride Flush Syringe 10 Ml IV PRN PRN LINE FLUSH Zolpidem Tartrate 5 mg 09/15/18 02:49 09/17/18 23:20 Ambien PO 5 mg QHS PRN Administration Insomnia
[2018-09-18] MEDS ORDERED: IBUPROFEN PO PRN (15:41)
--- NOTE | 2018-09-18 15:45 | Event Note ---
Date: 09/18/18 Pt seen and examined. She c/o pain meds not lasting long enough. I have added ibuprofen to what she is already getting IV to cover for break through pain on iv meds. I took some time again to d/w plan of care and that she seems to be improving with decrease in WBC and having been afebrile since 09/19/18 @ 1919pm. Pt expressed understanding. Vital signs stable temperature 99.7 degrees Bandages clean and dry without minimal drainage noted. Assessment: TOA status post CT-guided drainage- improving Plan: Will follow antibiotic regimen per Dr. Ohara's note
[2018-09-18] MEDS: PERCOCET 5/325 PO PRN (20:26)
[2018-09-18] MEDS: BENADRYL PO PRN (20:31)
[2018-09-19] MEDS: DOXYCYCLINE HYCLATE 100 MG in NACL 0.9% 250ML 250 ML IV SCH ×3 (00:30→21:33)
[2018-09-19] MEDS: PERCOCET 5/325 PO PRN ×5 (01:57→23:54)
[2018-09-19] MEDS: AMBIEN PO PRN ×2 (02:00→22:06)
[2018-09-19] MEDS: DILAUDID IV PRN ×5 (04:58→22:06)
[2018-09-19] MEDS: FLAGYL 500 MG/100 ML 500 MG/100 ML BAG IV SCH ×3 (05:00→21:33)
[2018-09-19] MEDS: PEPCID PO SCH (09:35)
[2018-09-19] MEDS: ROCEPHIN/NS 2 GM/100 ML 2 GM/100 ML BAG IV SCH (09:36)
[2018-09-19] MEDS: SODIUM CHLORIDE FLUSH SYRINGE 10 ML IV SCH ×2 (09:51→22:06)
--- NOTE | 2018-09-19 15:33 | Progress Note ---
Assessment and Plan Assessment and plan: Left tubo-ovarian abscess s/p CT guided drainage done 09/[address] Sepsis due to left tubo-ovarian abscess, POA ID following On Ceftriaxone, doxycycline Fever On Antibiotics Leukocytosis due to sepsis/abscess Full code status History Interval history: Abdominal pain back pain Hospitalist Physical - Physical exam Narrative exam: General: Not in acute distress, sitting up in bed, HEENT: Normocephalic, atraumatic Neck: supple, no JVD Heart: S1 and S2 reg, no murmurs, rubs or gallop Lungs: Clear, no crackles, no wheeze Abd: soft, mild tender, non distended, normal BS, surgical drain pelvis Ext: No edema, no clubbing, no cyanosis, Neuro: Awake,alert, oriented x 3, moves all ext, non focal - Constitutional Vitals: Temp Pulse Resp BP Pulse Ox 98.2 F 80 20 108/67 100 09/19/18 12:00 09/19/18 12:00 09/19/18 14:41 09/19/18 12:00 09/19/18 07:13 General appearance: Present: no acute distress Results - Labs CBC & Chem 7: 09/20/18 10:05 09/20/18 10:05 Labs: Laboratory Last Values WBC 14.3 K/mm3 (4.5-11.0) H 09/18/18 04:37 RBC 3.21 M/mm3 (3.65-5.03) L 09/18/18 04:37 Hgb 8.8 gm/dl (10.1-14.3) L 09/18/18 04:37 Hct 27.1 % (30.3-42.9) L 09/18/18 04:37 MCV 84 fl (79-97) 09/18/18 04:37 MCH 27 pg (28-32) L 09/18/18 04:37 MCHC 32 % (30-34) 09/18/18 04:37 RDW 14.1 % (13.2-15.2) 09/18/18 04:37 Plt Count 384 K/mm3 (140-440) 09/18/18 04:37 Lymph % (Auto) 6.9 % (13.4-35.0) L 09/16/18 04:33 [place] % (Auto) 10.7 % (0.0-7.3) H 09/16/18 04:33 Eos % (Auto) 0.5 % (0.0-4.3) 09/16/18 04:33 Baso % (Auto) 0.2 % (0.0-1.8) 09/16/18 04:33 Lymph # 1.1 K/mm3 (1.2-5.4) L 09/16/18 04:33 [place] # 1.6 K/mm3 (0.0-0.8) H 09/16/18 04:33 Eos # 0.1 K/mm3 (0.0-0.4) 09/16/18 04:33 Baso # 0.0 K/mm3 (0.0-0.1) 09/16/18 04:33 Seg Neutrophils % 81.7 % (40.0-70.0) H 09/16/18 04:33 Seg Neutrophils # 12.5 K/mm3 (1.8-7.7) H 09/16/18 04:33 PT 14.4 Sec. (12.2-14.9) 09/15/18 03:19 INR 1.05 (0.87-1.13) 09/15/18 03:19 Sodium 139 mmol/L (137-145) 09/18/18 04:37 Potassium 3.8 mmol/L (3.6-5.0) 09/18/18 04:37 Chloride 104.4 mmol/L (98-107) 09/18/18 04:37 Carbon Dioxide 24 mmol/L (22-30) 09/18/18 04:37 14 mmol/L 09/18/18 04:37 BUN 3 mg/dL (7-17) L 09/18/18 04:37 0.8 mg/dL (0.7-1.2) 09/18/18 04:37 Estimated GFR > 60 ml/min 09/18/18 04:37 4 % 09/18/18 04:37 Glucose 102 mg/dL (65-100) H 09/18/18 04:37 Lactic Acid 0.80 mmol/L (0.7-2.0) 09/15/18 03:19 Calcium 8.1 mg/dL (8.4-10.2) L 09/18/18 04:37 Magnesium 2.40 mg/dL (1.7-2.3) H 09/14/18 16:57 < 0.010 ng/mL (0.00-0.029) 09/14/18 16:57 26.70 mg/dL (0.00-1.30) H 09/16/18 00:33 HCG, Qual Negative (Negative) 09/14/18 21:31 Yellow (Yellow) 09/15/18 05:53 Cloudy (Clear) 09/15/18 05:53 6.0 (5.0-7.0) 09/15/18 05:53 Ur Specific [place] 1.028 (1.003-1.030) 09/15/18 05:53 30 mg/dl mg/dL (Negative) 09/15/18 05:53 Neg mg/dL (Negative) 09/15/18 05:53 20 mg/dL (Negative) 09/15/18 05:53 Lg (Negative) 09/15/18 05:53 Neg (Negative) 09/15/18 05:53 Neg (Negative) 09/15/18 05:53 < 2.0 mg/dL (<2.0) 09/15/18 05:53 Ur Leukocyte Esterase Lg (Negative) 09/15/18 05:53 89.0 /HPF (0.0-6.0) H 09/15/18 05:53 174.0 /HPF (0.0-6.0) 09/15/18 05:53 U Epithel Cells (Auto) 14.0 /HPF (0-13.0) H 09/15/18 05:53 1+ /HPF (Negative) 09/15/18 05:53 2+ /HPF 09/15/18 05:53 Few /HPF 09/15/18 05:53 C.trachomatis DNA (SDA) Not detected (Not Detected) 09/15/18 03:57 N.gonorrhoeae DNA (SDA) Not detected (Not Detected) 09/15/18 03:57 Blood Type B POSITIVE 09/16/18 09:32 Antibody Screen Negative 09/16/18 09:32 Active Medications - Current Medications Current Medications: Generic Name Dose Route Start Last Admin Trade Name Freq PRN Reason Stop Dose Admin Acetaminophen 650 mg 09/15/18 08:30 09/17/18 17:19 Tylenol PO 650 mg Q6H PRN Administration Pain MILD(1-3)/Fever >100.5/RIBEIRO Diphenhydramine HCl 25 mg 09/18/18 20:25 09/18/18 20:31 Benadryl PO 25 mg Q6H PRN Administration Itching Famotidine 20 mg 09/18/18 10:00 09/19/18 09:35 Pepcid PO 20 mg DAILY ARUNA Administration Hydromorphone HCl 0.5 mg 09/15/18 02:49 09/19/18 14:41 Dilaudid IV 0.5 mg Q3H PRN Administration Pain , Severe (7-10) Potassium Chloride/Sodium Chloride 20 meq in 1,000 mls @ 100 mls/hr 09/15/18 03:00 09/16/18 08:35 Ns/Kcl 20meq IV 100 mls/hr DIRECT ARUNA Administration Doxycycline Hyclate 100 mg/ 250 mls @ 250 mls/hr 09/15/18 10:00 09/19/18 09:36 Sodium Chloride IV 100 mls/hr Q12HR ARUNA Administration Protocol Metronidazole 500 mg in 100 mls @ 100 mls/hr 09/15/18 09:00 09/19/18 14:35 Flagyl 500 Mg/100 Ml IV 100 mls/hr Q8HR ARUNA Administration Protocol Ceftriaxone Sodium 2 gm in 100 mls @ 200 mls/hr 09/16/18 10:00 09/19/18 09:36 Rocephin/Ns 2 Gm/100 Ml IV 100 mls/hr Q24HR ARUNA Administration Protocol Ibuprofen 800 mg 09/18/18 15:41 Motrin PO Q6HR PRN Pain, Mild (1-3) Ondansetron HCl 4 mg 09/15/18 02:49 09/18/18 12:13 Zofran IV 4 mg Q6H PRN Administration Nausea And Vomiting Oxycodone/Acetaminophen 1 tab 09/15/18 02:49 09/19/18 11:54 Percocet 5/325 PO 1 tab Q4H PRN Administration Pain, Moderate (4-6) Sodium Chloride 10 ml 09/15/18 10:00 09/19/18 09:51 Sodium Chloride Flush Syringe 10 Ml IV Not Given BID ARUNA Sodium Chloride 10 ml 09/15/18 02:49 Sodium Chloride Flush Syringe 10 Ml IV PRN PRN LINE FLUSH Zolpidem Tartrate 5 mg 09/15/18 02:49 09/19/18 02:00 Ambien PO 5 mg QHS PRN Administration Insomnia
[2018-09-19] MEDS ORDERED: DIFLUCAN PO ONE (18:30)
[2018-09-19] MEDS: ZOFRAN IV PRN (18:48)
[2018-09-20] MEDS: DILAUDID IV PRN ×5 (04:18→18:18)
[2018-09-20] MEDS: FLAGYL 500 MG/100 ML 500 MG/100 ML BAG IV SCH ×2 (05:43→14:40)
[2018-09-20] MEDS: PERCOCET 5/325 PO PRN ×4 (05:49→21:08)
[2018-09-20] MEDS: DOXYCYCLINE HYCLATE 100 MG in NACL 0.9% 250ML 250 ML IV SCH (09:38)
[2018-09-20] MEDS: ROCEPHIN/NS 2 GM/100 ML 2 GM/100 ML BAG IV SCH (09:39)
[2018-09-20] MEDS: PEPCID PO SCH (09:42)
[2018-09-20 10:22] LABS: Hematocrit 28.6 % (30.3-42.9); Hemoglobin 9.4 gm/dl (10.1-14.3); Mean Corpuscular HGB Conc 33 % (30-34); Mean Corpuscular Volume 85 fl (79-97); Platelet Count 448 K/mm3 (140-440); Red Blood Count 3.39 M/mm3 (3.65-5.03); Red Cell Distribution Width 13.9 % (13.2-15.2)
[2018-09-20 10:40] LABS: BUN/Creatinine Ratio 6; Blood Urea Nitrogen 5 mg/dL (7-17); Calcium 8.5 mg/dL (8.4-10.2); Hemolysis Index 1
--- NOTE | 2018-09-20 10:43 | Event Note ---
Date: 09/20/18 Patient lying on her side, comfortably in bed who complains of minimal pain. Patient desires to go home Vital signs stable afebrile greater than 36 hours Bandages clean and dry without minimal drainage noted. Assessment: TOA status post CT-guided drainage improving. Patient is afebrile. Plan: Follow antibiotic recommendations per infectious disease Recommend contact and interventional radiologist about removing of her drain Also will increase by mouth pain medications on discharge. Patient can follow up in our office for outpatient care.
--- NOTE | 2018-09-20 12:16 | Progress Note ---
Assessment and Plan Assessment and plan: Patiient is 38 yo presented with abdominal pain, chills, SOB. CT Abd/pelvis showed left tubo-ovarian abscess. she was admitted, evaluated by Gyne, ID physician. CT guided drainage done on 09/16 with drain left in place. Left tubo-ovarian abscess s/p CT guided drainage done 09/[address] Sepsis due to left tubo-ovarian abscess, POA ID following On Ceftriaxone, doxycycline Fever On Antibiotics Leukocytosis due to sepsis/abscess Full code status History Interval history: Patient with tubo-ovarian abscess s/p CT guided drainage Less abdominal pain back pain Hospitalist Physical - Constitutional Vitals: Temp Pulse Resp BP Pulse Ox 98.5 F 62 18 117/75 100 09/20/18 11:00 09/20/18 11:00 09/20/18 11:00 09/20/18 11:00 09/20/18 11:00 General appearance: Present: no acute distress Results - Labs CBC & Chem 7: 09/20/18 10:05 09/20/18 10:05 Labs: Laboratory Last Values WBC 11.7 K/mm3 (4.5-11.0) H 09/20/18 10:05 RBC 3.39 M/mm3 (3.65-5.03) L 09/20/18 10:05 Hgb 9.4 gm/dl (10.1-14.3) L 09/20/18 10:05 Hct 28.6 % (30.3-42.9) L 09/20/18 10:05 MCV 85 fl (79-97) 09/20/18 10:05 MCH 28 pg (28-32) 09/20/18 10:05 MCHC 33 % (30-34) 09/20/18 10:05 RDW 13.9 % (13.2-15.2) 09/20/18 10:05 Plt Count 448 K/mm3 (140-440) H 09/20/18 10:05 Lymph % (Auto) 6.9 % (13.4-35.0) L 09/16/18 04:33 [place] % (Auto) 10.7 % (0.0-7.3) H 09/16/18 04:33 Eos % (Auto) 0.5 % (0.0-4.3) 09/16/18 04:33 Baso % (Auto) 0.2 % (0.0-1.8) 09/16/18 04:33 Lymph # 1.1 K/mm3 (1.2-5.4) L 09/16/18 04:33 [place] # 1.6 K/mm3 (0.0-0.8) H 09/16/18 04:33 Eos # 0.1 K/mm3 (0.0-0.4) 09/16/18 04:33 Baso # 0.0 K/mm3 (0.0-0.1) 09/16/18 04:33 Seg Neutrophils % 81.7 % (40.0-70.0) H 09/16/18 04:33 Seg Neutrophils # 12.5 K/mm3 (1.8-7.7) H 09/16/18 04:33 PT 14.4 Sec. (12.2-14.9) 09/15/18 03:19 INR 1.05 (0.87-1.13) 09/15/18 03:19 Sodium 137 mmol/L (137-145) 09/20/18 10:05 Potassium 3.9 mmol/L (3.6-5.0) 09/20/18 10:05 Chloride 100.7 mmol/L (98-107) 09/20/18 10:05 Carbon Dioxide 27 mmol/L (22-30) 09/20/18 10:05 13 mmol/L 09/20/18 10:05 BUN 5 mg/dL (7-17) L 09/20/18 10:05 0.8 mg/dL (0.7-1.2) 09/20/18 10:05 Estimated GFR > 60 ml/min 09/20/18 10:05 6 % 09/20/18 10:05 Glucose 97 mg/dL (65-100) 09/20/18 10:05 Lactic Acid 0.80 mmol/L (0.7-2.0) 09/15/18 03:19 Calcium 8.5 mg/dL (8.4-10.2) 09/20/18 10:05 Magnesium 2.40 mg/dL (1.7-2.3) H 09/14/18 16:57 < 0.010 ng/mL (0.00-0.029) 09/14/18 16:57 26.70 mg/dL (0.00-1.30) H 09/16/18 00:33 HCG, Qual Negative (Negative) 09/14/18 21:31 Yellow (Yellow) 09/15/18 05:53 Cloudy (Clear) 09/15/18 05:53 6.0 (5.0-7.0) 09/15/18 05:53 Ur Specific [place] 1.028 (1.003-1.030) 09/15/18 05:53 30 mg/dl mg/dL (Negative) 09/15/18 05:53 Neg mg/dL (Negative) 09/15/18 05:53 20 mg/dL (Negative) 09/15/18 05:53 Lg (Negative) 09/15/18 05:53 Neg (Negative) 09/15/18 05:53 Neg (Negative) 09/15/18 05:53 < 2.0 mg/dL (<2.0) 09/15/18 05:53 Ur Leukocyte Esterase Lg (Negative) 09/15/18 05:53 89.0 /HPF (0.0-6.0) H 09/15/18 05:53 174.0 /HPF (0.0-6.0) 09/15/18 05:53 U Epithel Cells (Auto) 14.0 /HPF (0-13.0) H 09/15/18 05:53 1+ /HPF (Negative) 09/15/18 05:53 2+ /HPF 09/15/18 05:53 Few /HPF 09/15/18 05:53 C.trachomatis DNA (SDA) Not detected (Not Detected) 09/15/18 03:57 N.gonorrhoeae DNA (SDA) Not detected (Not Detected) 09/15/18 03:57 Blood Type B POSITIVE 09/16/18 09:32 Antibody Screen Negative 09/16/18 09:32 Active Medications - Current Medications Current Medications: Generic Name Dose Route Start Last Admin Trade Name Freq PRN Reason Stop Dose Admin Acetaminophen 650 mg 09/15/18 08:30 09/17/18 17:19 Tylenol PO 650 mg Q6H PRN Administration Pain MILD(1-3)/Fever >100.5/RIBEIRO Diphenhydramine HCl 25 mg 09/18/18 20:25 09/18/18 20:31 Benadryl PO 25 mg Q6H PRN Administration Itching Famotidine 20 mg 09/18/18 10:00 09/20/18 09:42 Pepcid PO 20 mg DAILY ARUNA Administration Hydromorphone HCl 0.5 mg 09/15/18 02:49 09/20/18 08:07 Dilaudid IV 0.5 mg Q3H PRN Administration Pain , Severe (7-10) Potassium Chloride/Sodium Chloride 20 meq in 1,000 mls @ 100 mls/hr 09/15/18 03:00 09/16/18 08:35 Ns/Kcl 20meq IV 100 mls/hr DIRECT ARUNA Administration Doxycycline Hyclate 100 mg/ 250 mls @ 250 mls/hr 09/15/18 10:00 09/20/18 09:38 Sodium Chloride IV 100 mls/hr Q12HR ARUNA Administration Protocol Metronidazole 500 mg in 100 mls @ 100 mls/hr 09/15/18 09:00 09/20/18 05:43 Flagyl 500 Mg/100 Ml IV 100 mls/hr Q8HR ARUNA Administration Protocol Ceftriaxone Sodium 2 gm in 100 mls @ 200 mls/hr 09/16/18 10:00 09/20/18 09:39 Rocephin/Ns 2 Gm/100 Ml IV 100 mls/hr Q24HR ARUNA Administration Protocol Ibuprofen 800 mg 09/18/18 15:41 Motrin PO Q6HR PRN Pain, Mild (1-3) Ondansetron HCl 4 mg 09/15/18 02:49 09/19/18 18:48 Zofran IV 4 mg Q6H PRN Administration Nausea And Vomiting Oxycodone/Acetaminophen 1 tab 09/15/18 02:49 09/20/18 09:44 Percocet 5/325 PO 1 tab Q4H PRN Administration Pain, Moderate (4-6) Sodium Chloride 10 ml 09/15/18 10:00 09/19/18 22:06 Sodium Chloride Flush Syringe 10 Ml IV 10 ml BID ARUNA Administration Sodium Chloride 10 ml 09/15/18 02:49 Sodium Chloride Flush Syringe 10 Ml IV PRN PRN LINE FLUSH Zolpidem Tartrate 5 mg 09/15/18 02:49 09/19/18 22:06 Ambien PO 5 mg QHS PRN Administration Insomnia
[2018-09-20] MEDS: BENADRYL PO PRN (16:57)
--- NOTE | 2018-09-20 19:32 | Progress Note ---
Assessment and Plan Assessment and Plan Cultures: 09/15/18 Blood culture no growth today 09/15/18 urine culture neg 09/16/18 Blood culture no growth today 09/16/18 Surgical culture no growth today A/P: 38-year old female with no know past medical history that presented to the ED on 09/15/18 with a day history of SOB and constipation for the past 5 days, no relieved by laxatives. She reports associated chills without fever, left lower quadrant abdominal pain radiating to the back, headaches, lightheadedness and generalized weakness. Admitted with: 1. Sepsis on admission: improving. Etiology most likely Left tubo-ovarian abscess +/- UTI. No fever. 2. Left tubo-ovarian abscess/PID: S/P IUD removal. Abdomen/Pelvis CT showed a multiloculated fluid collection in the pelvis on the left may represent etiologies such as tubo-ovarian abscess and left ovarian cyst. S/P CT guided drainage 100 mL purulent material removed. CRP=22. GC and Chlamydia all negative. 3. UTI: U/A with pyuria. WBC 89 with large LE. Urine culture no growth. Plan: -patient desires to go home, of to d/c from ID stand point -remove percutaneous drain -stop Ceftriaxone 2gm IV every 24 hours D6 -Continue Doxycycline 100 mg change to PO BID D6 -Continue Flagyl 500mg cahnge to PO every 8 hours D6 - start levaquin 750 mg po qday -ok to d/c home on levaquin 750 mg PO QDAY, doxycycline 100 mg po BID and flagyl 500 mg PO BID total 14 days until 09/28 Will follow Jade Campa MD Infectious Diseases [facility] M [phone] O [phone] Subjective Date of service: 09/20/18 Principal diagnosis: TOA Interval history: Patient feels better, minimal pelvic pain, no fever, desires to go home. ROS: denies N/V/D, cough rest neg Objective - Exam Narrative Exam: Constitutional: Alert.in NAD Head, Ears, Nose: Normocephalic, atraumatic. External ears, nose normal Eyes: Conjunctivae/corneas clear. No icterus. No ptosis. Neck: Supple, no meningeal signs Oral: dentition fair. No thrush. Cardiovascular: RRR Respiratory: Good air entry, clear to auscultation bilaterally GI: soft No TTP +drain with bloody drainage Musculoskeletal: No pedal edema, no cyanosis. Skin: No rash or abscess. Hem/Lymphatic: No palpable cervical or supraclavicular nodes. No lymphangitis Psych: Mood agitated Affect normal Neurological: Awake, alert, oriented. - Constitutional Vitals: Vital Signs Temp Pulse Resp BP Pulse Ox 98.5 F 62 18 117/75 100 09/20/18 11:00 09/20/18 11:00 09/20/18 11:00 09/20/18 11:00 09/20/18 11:00 Temperature -Last 24 Hours Temperature 98.5 F Temperature 98.4 F Temperature 98.0 F - Labs CBC & Chem 7: 09/20/18 10:05 09/20/18 10:05 Labs: Abnormal lab results 09/20/18 09/20/18 Range/Units 10:05 10:05 WBC 11.7 H (4.5-11.0) K/mm3 RBC 3.39 L (3.65-5.03) M/mm3 Hgb 9.4 L (10.1-14.3) gm/dl Hct 28.6 L (30.3-42.9) % Plt Count 448 H (140-440) K/mm3 BUN 5 L (7-17) mg/dL
[2018-09-20] MEDS: LEVAQUIN PO SCH (21:06)
[2018-09-20] MEDS: VIBRAMYCIN PO SCH (21:06)
[2018-09-20] MEDS: FLAGYL PO SCH (21:06)
[2018-09-20] MEDS: SODIUM CHLORIDE FLUSH SYRINGE 10 ML IV SCH (21:08)
[2018-09-21] MEDS: AMBIEN PO PRN (00:25)
[2018-09-21] MEDS: DILAUDID IV PRN (01:36)
[2018-09-21] MEDS: PERCOCET 5/325 PO PRN ×2 (06:02→09:29)
[2018-09-21 06:07] LABS: Hematocrit 30.3 % (30.3-42.9); Hemoglobin 9.9 gm/dl (10.1-14.3); Mean Corpuscular HGB Conc 33 % (30-34); Mean Corpuscular Volume 84 fl (79-97); Platelet Count 457 K/mm3 (140-440); Red Cell Distribution Width 13.9 % (13.2-15.2)
[2018-09-21 06:29] LABS: BUN/Creatinine Ratio 8; Blood Urea Nitrogen 6 mg/dL (7-17); Calcium 8.9 mg/dL (8.4-10.2); Hemolysis Index 4
[2018-09-21] MEDS: LEVAQUIN PO SCH (09:14)
[2018-09-21] MEDS: FLAGYL PO SCH (09:14)
[2018-09-21] MEDS: VIBRAMYCIN PO SCH (09:14)
[2018-09-21] MEDS: PEPCID PO SCH (09:14)
--- NOTE | 2018-09-21 09:30 | Progress Note ---
Assessment and Plan Patient with resolved TOA. Drainage catheter has been removed. Okay to discharge the patient home from an interventional standpoint today. Subjective Date of service: 09/21/18 Principal diagnosis: TOA Interval history: With a history of TOA status post placement of drain. Clinically, the patient is improved. A CT scan was ordered and performed today demonstrates complete decompression of the previously noted abscess. The patient's drainage catheter was therefore removed. Objective - Constitutional Vitals: Vital Signs - 12hr 09/20/18 09/21/18 09/21/18 23:38 04:10 06:02 Temperature 99.2 F 98.2 F Pulse Rate 87 79 Respiratory 18 16 18 Rate Blood Pressure 132/87 121/76 O2 Sat by Pulse 99 99 Oximetry General appearance: Present: no acute distress - EENT Eyes: PERRL, EOM intact ENT: hearing intact - Neck Neck: supple, normal ROM - Respiratory Respiratory effort: normal - Breasts Breasts: deferred Extremities: no ischemia - Gastrointestinal General gastrointestinal: Present: deferred Rectal Exam: deferred - Genitourinary Female genitourinary: deferred - Musculoskeletal Musculoskeletal: strength equal bilaterally - Neurologic Neurologic: no focal deficits - Psychiatric Psychiatric: appropriate mood/affect, cooperative - Labs CBC & Chem 7: 09/21/18 05:40 09/21/18 05:40 Labs: Abnormal lab results 09/20/18 09/20/18 09/21/18 Range/Units 10:05 10:05 05:40 WBC 11.7 H 12.3 H (4.5-11.0) K/mm3 RBC 3.39 L 3.60 L (3.65-5.03) M/mm3 Hgb 9.4 L 9.9 L (10.1-14.3) gm/dl Hct 28.6 L (30.3-42.9) % MCH 27 L (28-32) pg Plt Count 448 H 457 H (140-440) K/mm3 BUN 5 L (7-17) mg/dL 09/21/18 Range/Units 05:40 WBC (4.5-11.0) K/mm3 RBC (3.65-5.03) M/mm3 Hgb (10.1-14.3) gm/dl Hct (30.3-42.9) % MCH (28-32) pg Plt Count (140-440) K/mm3 BUN 6 L (7-17) mg/dL Medications & Allergies - Medications Allergies/Adverse Reactions: Allergies No Known Allergies Allergy (Verified 09/14/18 16:23) Home Medications: Home Medications Medication Instructions Recorded Confirmed Last Taken Type Azithromycin [Zithromax Z-ELOY] 250 mg PO DAILY 5 Days #6 tablet 05/03/17 09/16/18 Unknown Rx Benzonatate 200 mg PO TID PRN #30 capsule 05/03/17 09/16/18 Unknown Rx Fluticasone [Flonase] 1 spray NS QDAY #1 bottle 05/03/17 09/16/18 Unknown Rx Active Medications: Generic Name Dose Route Start Last Admin Trade Name Freq PRN Reason Stop Dose Admin Acetaminophen 650 mg 09/15/18 08:30 09/17/18 17:19 Tylenol PO 650 mg Q6H PRN Administration Pain MILD(1-3)/Fever >100.5/RIBEIRO Diphenhydramine HCl 25 mg 09/18/18 20:25 09/20/18 16:57 Benadryl PO 25 mg Q6H PRN Administration Itching Doxycycline Hyclate 100 mg 09/20/18 22:00 09/21/18 09:14 Vibramycin PO 100 mg BID ARUNA Administration Famotidine 20 mg 09/18/18 10:00 09/21/18 09:14 Pepcid PO 20 mg DAILY ARUNA Administration Hydromorphone HCl 0.5 mg 09/15/18 02:49 09/21/18 01:36 Dilaudid IV 0.5 mg Q3H PRN Administration Pain , Severe (7-10) Potassium Chloride/Sodium Chloride 20 meq in 1,000 mls @ 100 mls/hr 09/15/18 03:00 09/16/18 08:35 Ns/Kcl 20meq IV 100 mls/hr DIRECT ARUNA Administration Ibuprofen 800 mg 09/18/18 15:41 Motrin PO Q6HR PRN Pain, Mild (1-3) Levofloxacin 750 mg 09/20/18 22:00 09/21/18 09:14 Levaquin PO 750 mg Q24HR ARUNA Administration Metronidazole 500 mg 09/20/18 22:00 09/21/18 09:14 Flagyl PO 500 mg Q12HR ARUNA Administration Protocol Ondansetron HCl 4 mg 09/15/18 02:49 09/19/18 18:48 Zofran IV 4 mg Q6H PRN Administration Nausea And Vomiting Oxycodone/Acetaminophen 1 tab 09/15/18 02:49 09/21/18 06:02 Percocet 5/325 PO 1 tab Q4H PRN Administration Pain, Moderate (4-6) Sodium Chloride 10 ml 09/15/18 10:00 09/20/18 21:08 Sodium Chloride Flush Syringe 10 Ml IV 10 ml BID ARUNA Administration Sodium Chloride 10 ml 09/15/18 02:49 Sodium Chloride Flush Syringe 10 Ml IV PRN PRN LINE FLUSH Zolpidem Tartrate 5 mg 09/15/18 02:49 09/21/18 00:25 Ambien PO 5 mg QHS PRN Administration Insomnia
--- NOTE | 2018-09-21 10:42 | Cat Scan Report ---
CT ABDOMEN PELVIS WITHOUT CONTRAST: HISTORY: Tubo-ovarian abscess, improved chronically. COMPARISON: 09/16/18. TECHNIQUE: Helical CT in 1.25mm intervals without IV contrast. Sagittal and coronal reconstructions. FINDINGS: The left transgluteal pigtail catheter remains in the same position since 09/16/18 CT drainage. There appears to be complete or near-complete drainage of the left tubo-ovarian abscess. No new pelvic fluid collection is identified. Trace right pleural effusion is identified. Otherwise, the lung bases are clear. Normal heart size. Normal liver, biliary system, pancreas, kidneys, adrenal glands, bowel loops and appendix. The bladder is unremarkable. IMPRESSION: Complete or near complete evacuation of the left tubo-ovarian abscess. No new acute process. Trace right dural effusion.
--- NOTE | 2018-09-21 11:39 | Progress Note ---
Assessment and Plan Assessment and Plan Cultures: 09/15/18 Blood culture no growth today 09/15/18 urine culture neg 09/16/18 Blood culture no growth today 09/16/18 Surgical culture no growth today A/P: 38-year old female with no know past medical history that presented to the ED on 09/15/18 with a day history of SOB and constipation for the past 5 days, no relieved by laxatives. She reports associated chills without fever, left lower quadrant abdominal pain radiating to the back, headaches, lightheadedness and generalized weakness. Admitted with: 1. Sepsis on admission: improving. Etiology most likely Left tubo-ovarian abscess +/- UTI. No fever. 2. Left tubo-ovarian abscess/PID: S/P IUD removal. Abdomen/Pelvis CT showed a multiloculated fluid collection in the pelvis on the left may represent etiologies such as tubo-ovarian abscess and left ovarian cyst. S/P CT guided drainage 100 mL purulent material removed. CRP=22. GC and Chlamydia all negative. 3. UTI: U/A with pyuria. WBC 89 with large LE. Urine culture no growth. Plan: -patient desires to go home, ok to d/c from ID stand point -Continue Doxycycline 100 mg change to PO BID D7 -Continue Flagyl 500mg cahnge to PO every 8 hours D7 -Continue levaquin 750 mg po qday -ok to d/c home on levaquin 750 mg PO QDAY, doxycycline 100 mg po BID and flagyl 500 mg PO BID total 14 days until 09/28 -educated about antibiotics interactions and side effects -ID clinic f/u in 1-2 weeks -patient is requesting a work excuse letter, informed floor staff Will follow Jade Campa MD Infectious Diseases Home Manager [facility] M [phone] O [phone] Subjective Date of service: 09/21/18 Principal diagnosis: TOA Interval history: Patient feels better, no pelvic pain, wants to go home. ROS: denies N/V/D, cough rest neg Objective - Exam Narrative Exam: Constitutional: Alert.in NAD Head, Ears, Nose: Normocephalic, atraumatic. External ears, nose normal Eyes: Conjunctivae/corneas clear. No icterus. No ptosis. Neck: Supple, no meningeal signs Oral: dentition fair. No thrush. Cardiovascular: RRR Respiratory: Good air entry, clear to auscultation bilaterally GI: soft No TTP +drain removed Musculoskeletal: No pedal edema, no cyanosis. Skin: No rash or abscess. Hem/Lymphatic: No palpable cervical or supraclavicular nodes. No lymphangitis Psych: Mood agitated Affect normal Neurological: Awake, alert, oriented. - Constitutional Vitals: Vital Signs Temp Pulse Resp BP Pulse Ox 98.2 F 79 18 121/76 99 09/21/18 04:10 09/21/18 04:10 09/21/18 06:02 09/21/18 04:10 09/21/18 04:10 Temperature -Last 24 Hours Temperature 98.2 F Temperature 99.2 F Temperature 98.0 F - Labs CBC & Chem 7: 09/21/18 05:40 09/21/18 05:40 Labs: Abnormal lab results 09/21/18 09/21/18 Range/Units 05:40 05:40 WBC 12.3 H (4.5-11.0) K/mm3 RBC 3.60 L (3.65-5.03) M/mm3 Hgb 9.9 L (10.1-14.3) gm/dl MCH 27 L (28-32) pg Plt Count 457 H (140-440) K/mm3 BUN 6 L (7-17) mg/dL
--- NOTE | 2018-09-21 12:53 | Discharge Summary ---
Providers - Providers Date of Admission: 09/15/18 02:49 Attending physician: ALLEN HICKMAN MD 09/15/18 02:23 Consult to Physician [CONS] Stat Comment: CLINICAL TEAM LEAD/PA spoke with Dr. Posey @ [phone] Consulting Provider: CONCEPCION POSEY Physician Instructions: Reason For Exam: tubo-ovarian abscess 09/15/18 06:56 Consult to Interventional Radiology [CONS] Routine Consulting Provider: SUBHASH FREITAS Reason For Exam: TOA Place consult to:: DR. GOTTI Notified:: DR. GOTTI Time called:: 10:50 Comment:: COMPLETED Consult to Physician [CONS] Routine Comment: Consulting Provider: PAOLA MONCADA Physician Instructions: Reason For Exam: PID Primary care physician: PERCOLATOR OPERATOR Hospitalization Reason for admission: ovarina abscess Condition: Stable Hospital course: Patient is a 38-year-old -[place] female with no known past medical history who presented to the ED on account of a day history of shortness of breath. Patient stated that she's been having constipation for the past 5 days which was not relieved by laxatives. Subsequently, she started experiencing palpitations and today she started having shortness of breath which prompted her to come to the ED for further evaluation. She has associated chills without fever, left lower quadrant abdominal pain radiating to the back, headaches, lightheadedness and generalized weakness. She denies chest pain, cough, sore throat, runny nose or congestion, leg swelling, orthopnea or PND. No nausea, vomiting, syncope or loss of consciousness. Patient was noted to have left tubo-ovarian abscess and was seen by Radiographer Angiogram and [facility] and the abscess was drained. ID was consulted and assisted with antibiotics management, she was initially managed as follows below. -Continue Doxycycline 100 mg change to PO BID D7 -Continue Flagyl 500mg cahnge to PO every 8 hours D7 -Continue levaquin 750 mg po qday -ok to d/c home on levaquin 750 mg PO QDAY, doxycycline 100 mg po BID and flagyl 500 mg PO BID total 14 days until 09/28 Discharge Diagnosis Left Tubo-ovarian abscess Sepsis secondary to Tubo-ovarian abscess Disposition: TO HOME OR SELFCARE Time spent for discharge: 35 mins Core Measure Documentation - Palliative Care Palliative Care/ Comfort Measures: Not Applicable - Core Measures Any of the following diagnoses?: none Exam - Physical Exam Narrative exam: General: Not in acute distress, sitting up in bed, HEENT: Normocephalic, atraumatic Neck: supple, no JVD Heart: S1 and S2 reg, no murmurs, rubs or gallop Lungs: Clear, no crackles, no wheeze Abd: soft, mild tender, non distended, normal BS, surgical drain pelvis Ext: No edema, no clubbing, no cyanosis, Neuro: Awake,alert, oriented x 3, moves all ext, non focal - Constitutional Vitals: Temp Pulse Resp BP Pulse Ox 98.2 F 79 18 121/76 99 09/21/18 04:10 09/21/18 04:10 09/21/18 06:02 09/21/18 04:10 09/21/18 04:10 Plan Activity: advance as tolerated, fall precautions Diet: low fat Special Instructions: record daily weights, record daily BP diary Follow up with: PRIMARY CARE, [Primary Care Provider] - 3-5 Days TERRA DUENAS MD [Staff Physician] - 7 Days PAOLA MONCADA MD [Staff Physician] - 7 Days Prescriptions: diphenhydrAMINE [Benadryl CAP] 25 mg PO Q6H PRN #10 capsule PRN Reason: Itching Docusate Sodium [Colace] 100 mg PO BID PRN #30 capsule PRN Reason: Constipation metroNIDAZOLE [Flagyl TAB] 500 mg PO Q12HR 7 Days tablet levoFLOXacin [Levaquin TAB] 750 mg PO Q24HR 7 Days tablet Ibuprofen [Motrin 800 MG tab] 800 mg PO Q6HR PRN #14 tablet PRN Reason: Pain, Mild (1-3) Famotidine [Pepcid] 20 mg PO DAILY #30 tablet oxyCODONE /ACETAMINOPHEN [Percocet 5/325 mg] 1 tab PO Q6HR PRN #14 tablet PRN Reason: Pain, Moderate (4-6) DOXYCYCLINE Hyclate [Vibramycin CAP] 100 mg PO BID 7 Days capsule
[2018-09-21 13:39] VITALS: BP 144/95
== END 2018-09-21 13:46 | disposition home or self-care (01) | DRG 872 ==
LOC: ED 15:39 → 3B-SURG 09-15 02:49
PROVIDERS: ADMIT Internal Medicine; ATTEND Internal Medicine
PROC: 0UPDXHZ Removal of Contraceptive Device from Uterus and Cervix, External Approach (ICD-10-PCS; principal; 2018-09-15)
PROC: 0W9J30Z Drainage of Pelvic Cavity with Drainage Device, Percutaneous Approach (ICD-10-PCS; 2018-09-16)
DX: A41.9 Sepsis, unspecified organism (principal); N39.0 Urinary tract infection, site not specified; K56.7 Ileus, unspecified; N70.93 Salpingitis and oophoritis, unspecified; T83.32XA Displacement of intrauterine contraceptive device, initial encounter; Y83.8 Other surgical procedures as the cause of abnormal reaction of the patient, or of later complication, without mention of misadventure at the time of the procedure; F17.200 Nicotine dependence, unspecified, uncomplicated; N73.9 Female pelvic inflammatory disease, unspecified; K59.00 Constipation, unspecified; Y92.89 Other specified places as the place of occurrence of the external cause; Z72.89 Other problems related to lifestyle; Z79.899 Other long term (current) drug therapy
CPT/HCPCS: 10160; 36415; 74176; 74177; 76830; 76856; 77012; 80048; 81001; 82140; 83735; 84484; 84703; 85025; 85027; 85610; 86140; 86850; 86900; 86901; 87040; 87086; 87116; 87591; 88300; 88302; 93005; 93010; 94760; 96374; 99406; G0378; C1769; J0295; J0696; J1170; J1200; J1580; J1885; J2250; J2405; J3010; J7030; J7040; J7050; Q9967

== ENCOUNTER 2019-08-28 17:44 | Emergency (ER) | payer SELFPAY ==
[2019-08-28] MEDS ORDERED: ASPIRIN 325 MG TAB PO ONE (18:01)
[2019-08-28 18:18] LABS: Basophils % (Auto) 0.3 % (0.0-1.8); Eosinophils # (Auto) 0.1 K/mm3 (0.0-0.4); Eosinophils % (Auto) 0.9 % (0.0-4.3); Hematocrit 36.7 % (30.3-42.9); Hemoglobin 11.9 gm/dl (10.1-14.3); Lymphocytes # (Auto) 1.7 K/mm3 (1.2-5.4); Lymphocytes % (Auto) 20.1 % (13.4-35.0); Mean Corpuscular HGB Conc 32 % (30-34); Mean Corpuscular Volume 85 fl (79-97); Monocytes # (Auto) 0.6 K/mm3 (0.0-0.8); Monocytes % (Auto) 6.7 % (0.0-7.3); Platelet Count 271 K/mm3 (140-440); Red Blood Count 4.32 M/mm3 (3.65-5.03); Red Cell Distribution Width 13.8 % (13.2-15.2)
[2019-08-28 18:38] LABS: BUN/Creatinine Ratio 17; Blood Urea Nitrogen 15 mg/dL (7-17); Calcium 9.4 mg/dL (8.4-10.2); Hemolysis Index 4
--- NOTE | 2019-08-28 18:42 | XRay Report ---
CHEST 1 VIEW INDICATION: MAIN: Chest Pain for 1 week COMPARISON: 05/03/2017 FINDINGS: Support devices: None Heart: Normal and unchanged Lungs/Pleura: No acute pulmonary or pleural findings. IMPRESSION: 1. No acute disease and no interval change. Signer Name: Cole Maki MD Signed: 08/28/2019 6:38 PM Workstation Name: [id number]
--- NOTE | 2019-08-28 18:44 | Emergency Department Report ---
ED Chest Pain HPI - General Chief Complaint: Dyspnea/Respdistress Stated Complaint: CHEST PAIN, SOB Time Seen by Provider: 08/28/19 18:09 Source: patient Mode of arrival: Ambulatory Limitations: No Limitations - History of Present Illness Initial Comments: Chief complaint: Chest tightness shortness of breath HPI: This is a 39-year-old female with history of tobacco abuse and seasonal allergies who presents with chest tightness and shortness of breath. She felt generalized malaise. She felt as if her symptoms were due to seasonal allergies. She treated with Zyrtec. She was informed that there was a confirmed case of COVID 19 infection at her job. 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 She denies cough she denies wheezes. She does have chills. She denies fever. She has headache. Symptoms have been present for 1 week. No leg pain. No recent travel. MD Complaint: chest pain -: Gradual, week(s) (1) Onset: during rest Pain Location: substernal, left chest Severity: mild Quality: tightness Consistency: constant Improves With: nothing Worsens With: nothing - Related Data Previous Rx's Medication Instructions Recorded Last Taken Type Benzonatate 200 mg PO TID PRN #30 capsule 05/03/17 Unknown Rx Fluticasone [Flonase] 1 spray NS QDAY #1 bottle 05/03/17 Unknown Rx DOXYCYCLINE Hyclate [Vibramycin 100 mg PO BID 7 Days capsule 09/21/18 Unknown Rx CAP] Docusate Sodium [Colace] 100 mg PO BID PRN #30 capsule 09/21/18 Unknown Rx Famotidine [Pepcid] 20 mg PO DAILY #30 tablet 09/21/18 Unknown Rx Ibuprofen [Motrin 800 MG tab] 800 mg PO Q6HR PRN #14 tablet 09/21/18 Unknown Rx diphenhydrAMINE [Benadryl CAP] 25 mg PO Q6H PRN #10 capsule 09/21/18 Unknown Rx levoFLOXacin [Levaquin TAB] 750 mg PO Q24HR 7 Days tablet 09/21/18 Unknown Rx metroNIDAZOLE [Flagyl TAB] 500 mg PO Q12HR 7 Days tablet 09/21/18 Unknown Rx oxyCODONE /ACETAMINOPHEN [Percocet 1 tab PO Q6HR PRN #14 tablet 09/21/18 Unknown Rx 5/325 mg] DOXYCYCLINE Hyclate [Vibramycin 100 mg PO Q12HR 7 Days #14 capsule 08/28/19 Unknown Rx CAP] Allergies Allergy/AdvReac Type Severity Reaction Status Date / Time No Known Allergies Allergy Verified 09/14/18 16:23 Heart Score - HEART Score History: Slightly suspicious EKG: Normal Age: < 45 Risk factors: 1-2 risk factors Troponin: < normal limit HEART Score: 1 ED Review of Systems ROS: Stated complaint: CHEST PAIN, SOB Other details as noted in HPI Comment: All other systems reviewed and negative Constitutional: chills, malaise. denies: fever Respiratory: shortness of breath. denies: cough Cardiovascular: chest pain Gastrointestinal: denies: abdominal pain, nausea, vomiting ED Past Medical Hx - Past Medical History Previous Medical History?: No Hx Hypertension: No Hx CVA: No Hx Heart Attack/AMI: No Hx Congestive Heart Failure: No Hx Diabetes: No Hx Deep Vein Thrombosis: No Hx Pulmonary Embolism: No Hx GERD: No Hx Liver Disease: No Hx Renal Disease: No Hx Sickle Cell Disease: No Hx Arthritis: No Hx Headaches / Migraines: No Hx Seizures: No Hx Kidney Stones: No Hx Psychiatric Treatment: No Hx Asthma: No Hx COPD: No Hx Tuberculosis: No Hx Dementia: No Hx HIV: No - Surgical History Past Surgical History?: Yes Hx Coronary Stent: No Hx Open Heart Surgery: No Hx Pacemaker: No Hx Internal Defibrillator: No Hx Cholecystectomy: No Hx Appendectomy: No Hx Breast Surgery: No Additional Surgical History: ovarian cyst - Social History Smoking Status: Current Some Day Smoker Substance Use Type: None - Medications Home Medications: Home Medications Medication Instructions Recorded Confirmed Last Taken Type Benzonatate 200 mg PO TID PRN #30 capsule 05/03/17 09/16/18 Unknown Rx Fluticasone [Flonase] 1 spray NS QDAY #1 bottle 05/03/17 09/16/18 Unknown Rx DOXYCYCLINE Hyclate [Vibramycin 100 mg PO BID 7 Days capsule 09/21/18 Unknown Rx CAP] Docusate Sodium [Colace] 100 mg PO BID PRN #30 capsule 09/21/18 Unknown Rx Famotidine [Pepcid] 20 mg PO DAILY #30 tablet 09/21/18 Unknown Rx Ibuprofen [Motrin 800 MG tab] 800 mg PO Q6HR PRN #14 tablet 09/21/18 Unknown Rx diphenhydrAMINE [Benadryl CAP] 25 mg PO Q6H PRN #10 capsule 09/21/18 Unknown Rx levoFLOXacin [Levaquin TAB] 750 mg PO Q24HR 7 Days tablet 09/21/18 Unknown Rx metroNIDAZOLE [Flagyl TAB] 500 mg PO Q12HR 7 Days tablet 09/21/18 Unknown Rx oxyCODONE /ACETAMINOPHEN [Percocet 1 tab PO Q6HR PRN #14 tablet 09/21/18 Unknown Rx 5/325 mg] DOXYCYCLINE Hyclate [Vibramycin 100 mg PO Q12HR 7 Days #14 capsule 08/28/19 Unknown Rx CAP] ED Physical Exam - General Limitations: No Limitations General appearance: alert, in no apparent distress - Head Head exam: Present: atraumatic, normocephalic - Eye Eye exam: Present: normal appearance - ENT ENT exam: Present: mucous membranes moist - Neck Neck exam: Present: normal inspection, full ROM - Respiratory Respiratory exam: Present: normal lung sounds bilaterally. Absent: respiratory distress, wheezes, rales, rhonchi - Cardiovascular Cardiovascular Exam: Present: regular rate, normal rhythm, normal heart sounds. Absent: systolic murmur, diastolic murmur, rubs, gallop - GI/Abdominal GI/Abdominal exam: Present: soft. Absent: distended, tenderness, guarding, rebound - Extremities Exam Extremities exam: Present: normal inspection - Neurological Exam Neurological exam: Present: alert, oriented X3 - Psychiatric Psychiatric exam: Present: normal affect, normal mood - Skin Skin exam: Present: warm, dry, intact, normal color. Absent: rash ED Course Vital Signs 08/28/19 08/28/19 17:56 18:26 Temperature 97.8 F Pulse Rate 7 L 66 Respiratory 20 16 Rate Blood Pressure 150/102 Blood Pressure 145/95 [Left] O2 Sat by Pulse 100 99 Oximetry ED Medical Decision Making - Lab Data Result diagrams: 08/28/19 18:03 08/28/19 18:03 Laboratory Results - last 24 hr 08/28/19 08/28/19 18:03 18:03 WBC 8.2 RBC 4.32 Hgb 11.9 Hct 36.7 MCV 85 MCH 28 MCHC 32 RDW 13.8 Plt Count 271 Lymph % (Auto) 20.1 Kendall % (Auto) 6.7 Eos % (Auto) 0.9 Baso % (Auto) 0.3 Lymph # 1.7 Kendall # 0.6 Eos # 0.1 Baso # 0.0 Seg Neutrophils % 72.0 H Seg Neutrophils # 5.9 Sodium 138 Potassium 4.1 Chloride 102.6 Carbon Dioxide 25 Anion Gap 15 BUN 15 Creatinine 0.9 Estimated GFR > 60 BUN/Creatinine Ratio 17 Glucose 93 Calcium 9.4 Troponin T < 0.010 - EKG Data -: EKG Interpreted by Me EKG shows normal: sinus rhythm, axis, intervals, QRS complexes, ST-T waves Rate: normal - EKG Data Interpretation: normal EKG (Rate 65 bpm) - Radiology Data Radiology results: report reviewed, image reviewed Chest radiograph: No infiltrate no pneumonia normal mediastinum normal cardiac silhouette - Medical Decision Making Ms. Mock presents with mild chest pressure and shortness of breath with history of exposure to 1 confirmed case of COVID 19 differential diagnosis includes acute bronchitis versus COVID 19 infection. I recommended 14 days of self isolation and self quarantine. I also encouraged her to ask for COVID 19 testing by her employer. Will treat acute bronchitis with doxycycline in the setting of tobacco use. Recommended continued use of Zyrtec [id number] and possibly Flonase. Discharged home in stable condition. No indication of pneumonia, pulmonary embolism, ACS, Pericarditis CBC chemistry troponin all within normal limits. Critical care attestation.: If time is entered above; I have spent that time in minutes in the direct care of this critically ill patient, excluding procedure time. ED Disposition Clinical Impression: Suspected 2019 novel coronavirus infection Disposition: DC-01 TO HOME OR SELFCARE Is pt being admited?: No Does the pt Need Aspirin: No Condition: Stable Instructions: COVID-19 Additional Instructions: Please self isolate and self quarantine for the next 14 days. Prescriptions: DOXYCYCLINE Hyclate [Vibramycin CAP] 100 mg PO Q12HR 7 Days #14 capsule Referrals: RAFA MORSE MD [Staff Physician] - as needed Forms: Work/School Release Form(ED)
[2019-08-28 19:11] VITALS: BP 138/89
== END 2019-08-28 19:15 | disposition home or self-care (01) ==
LOC: ED 17:44
DX: R07.89 Other chest pain (principal); R06.02 Shortness of breath; R53.81 Other malaise; F17.200 Nicotine dependence, unspecified, uncomplicated; Z20.828 Contact with and (suspected) exposure to other viral communicable diseases; Z79.1 Long term (current) use of non-steroidal anti-inflammatories (NSAID); Z79.899 Other long term (current) drug therapy
CPT/HCPCS: 36415; 71045; 80048; 84484; 85025; 93005

== ENCOUNTER 2020-03-11 13:01 | Emergency (ER) | payer SELFPAY ==
[2020-03-11 13:10] VITALS: BP 165/110
--- NOTE | 2020-03-11 13:53 | Emergency Department Report ---
Chief Complaint: Upper Respiratory Infection Stated Complaint: DIFFICULTY BREATHING - HPI History of Present Illness: 39-year-old female presents to the emergency room complaining of chest congestion that started yesterday. Patient states is been taking [id number] decongestion and now having chest tightness. Patient denies any chest pain no shortness of breath just complains of nasal congestion. No fever no chills. - Exam Vital Signs: Vital Signs 03/11/20 13:09 Temperature 98.2 F Pulse Rate 85 Respiratory 18 Rate Blood Pressure 165/110 O2 Sat by Pulse 97 Oximetry Physical Exam: Gen: alert oriented NAD Cardic: regular rate and rhythm no murmurs appreciated Resp: Clear to auscultation bilateral no wheezing no rales or rhonchi. Abdomen: Soft nontender nondistended normal bowel sounds. MSE screening note: Focused history and physical exam performed. Due to findings the following was ordered: 39-year-old female presents to the emergency room complaining of chest congestion that started yesterday. Patient states is been taking [id number] decongestion and now having chest tightness. Patient denies any chest pain no shortness of breath just complains of nasal congestion. No fever no chills. ED Disposition for MSE Disposition: MED SCREENING EXAM-LEFT Is pt being admited?: No Does the pt Need Aspirin: No Condition: Stable Instructions: Sinus Headache Additional Instructions: Recommend Zyrtec 10 mg daily and Flonase/fluticasone nasal spray. Tylenol or ibuprofen for sinus pain. Increase your water intake by 3 L daily. Referrals: RAFA MORSE MD [Staff Physician] - 3-5 Days
== END 2020-03-11 13:52 | disposition left against medical advice (07) ==
LOC: ED 13:01
DX: R06.00 Dyspnea, unspecified (principal); Z53.21 Procedure and treatment not carried out due to patient leaving prior to being seen by health care provider